=== PATIENT | female | born 1975 | race Caucasian/White ===

== ENCOUNTER 2018-03-27 23:42 | Emergency (ER) | payer BC, SELFPAY ==
[2018-03-27 23:46] VITALS: BP 152/100; PULSE 88; RESP 16; TEMP 36.9; O2SAT 100
[2018-03-27 23:56] LABS: Bilirubin Negative (Negative); Blood Trace-intact (Negative); Clarity Clear; Glucose Negative (Negative); Ketones 15 mg/dL (Negative); Leukocyte Esterase Small (Negative); Nitrite Negative (Negative); Urobilinogen 0.2 EU/dL (Up TO 0.2); pH 6.5 (5-8)
--- NOTE | 2018-03-28 00:02 | W.ED.GENAD ---
Discharge Plan Disposition Patient Disposition: HOME Condition: Good Discharge Details Chief Complaint: FlankPain Clinical Impression: Low back pain Primary Care Provider: Malena Mora ED Provider: Connor Wallace Home Meds and New Rx's Prescriptions: Continued lorazepam 0.5 mg tablet 0.5 mg PO HS PRN RF: 0 Discharge Instructions Additional Instructions: Your workup tonight is unremarkable. Urine is not infected. Laboratory studies are unremarkable. CT scan of the abdomen pelvis shows no acute findings. Would recommend gentle stretching, heat and taking Tylenol for back pain. Follow-up with primary care if continued symptoms next week. Return to ED if you develop high fever, persistent vomiting, new or worsening pain. Referrals: Malena Mora [Primary Care Provider] - Medical Decision Making Patient appears to be in no distress. She is not febrile here. She initially had flank pain but now has bilateral lower back pain. I cannot elicit tenderness anywhere. There is no CVAT. Abdomen is benign. She previously was seen and had a pelvic exam done this afternoon. test this afternoon was negative. We will check a urinalysis and give Motrin. She is not in significant discomfort and is not describing colicky kidney stone pain. This may be simple low back pain. Patient's first urinalysis was contaminated. Second urine also contaminated but has no red cells and minimal white cells. No evidence of infection. Patient is very concerned that there is something wrong. She reports nausea and back pain. She complains of pain with palpation in the epigastric region but had no guarding with distraction has no tenderness. She is worried because she is going to [facility]. As such we will go ahead and place an IV check her abdominal labs and get a CT scan of the abdomen and pelvis. Laboratory studies are unremarkable. White count is normal. Lipase is normal. CT scan of the abdomen pelvis without acute findings. No hydronephrosis. Patient made aware of findings. Recommend Tylenol as needed for discomfort. Follow-up with primary care when she returns from her vacation if necessary. Return to ED if she develops high fever, vomiting, new or worsening pain. Medical Records Medical records reviewed: Yes I reviewed the patient's medical records. Lab Data Lab results reviewed: Yes I reviewed the patient's lab results. HPI General Mode of arrival: ambulatory. Date/Time Provider Initiated Documentation: 03/27/18 23:48. Limitations to Documentation: no limitations. Information obtained by: patient. HPI Narrative: Patient presents to ED with complaints of back pain. Patient reports developing left sided flank pain this afternoon. She now has bilateral lower back pain. She has some nausea but no vomiting. She has no abdominal pain. She has had chills but no fever that she is aware of. She was just seen [facility] today for follow-up of bacterial vaginosis. She had a negative test. She had a pelvic exam and was cleared. She is supposed to be leaving for [place] tomorrow and was concerned with the back pain and came in for evaluation. She denies having urinary symptoms. She denies having colicky symptoms. Does not feel like previous kidney stones. She has not taking anything including Tylenol or Motrin for the pain. Related Data Home Medications Medication Instructions Recorded Confirmed lorazepam 0.5 mg tablet 0.5 mg PO HS PRN tab 02/22/18 03/27/18 Allergies Allergy/AdvReac Type Severity Reaction Status Date / Time azithromycin Allergy Severe Verified 03/27/18 23:54 Penicillins Allergy Severe Anaphylaxsi Verified 03/27/18 23:54 s General Stated Complaint: FlankPain ONRBERTO: 3 Review of Systems Constitutional Reports chills, Denies fever(s), Denies headache(s) and Denies weakness ENT Denies headache(s) and Denies neck pain Cardiovascular Denies chest pain, Denies palpitations and Denies dyspnea Respiratory Denies cough and Denies dyspnea Gastrointestinal Denies abdominal pain, Denies diarrhea, Reports nausea and Denies vomiting Genitourinary Denies abnormal vaginal bleeding, Denies hematuria, Denies urinary frequency, Denies dysuria, Denies pelvic pain, Reports flank pain, Denies urinary incontinence, Denies urinary hesitancy, Denies urinary urgency and Denies vaginal discharge Musculoskeletal Denies abnormal gait, Reports back pain, Denies muscle weakness, Denies neck pain, Denies numbness and Denies tingling Neurologic Denies abnormal gait, Denies headache(s), Denies focal weakness, Denies numbness, Denies radicular pain, Denies tingling and Denies weakness Endocrine Denies palpitations [facility] Medical History Anxiety (Chronic) Kidney stones (Chronic) Surgical History H/O dilation and curettage (Inactive) S/P ureteral stent placement (Inactive) Social History Smoking and Tabacco status: Former Tobacco Use Female Reproductive History Menstrual control method: none History History 5 Para 3 Hx # Term Pregnancies Multiple births Hx # Pregnancies Ectopic pregnancies AB induced Hx Number of Living Children AB spontaneous 2 Exam Const General: cooperative, comfortable and no acute distress Orientation: alert and oriented x3 Resp Effort & Inspection: normal respiratory effort GI Inspection: normal to inspection and non-distended Palpation: soft, not firm, no guarding and nontender Other: exam deferred; just had at [facility] today Back/Spine/Pelvis Back: no CVA tenderness Thoracic/Lumbar Spine: thoracic and lumbar spine normal to inspection, No pain with thoraco-lumbar ROM, No paraspinal tenderness, No thoraco-lumbar ROM limited, No thoracic spinal tenderness and No lumbar spinal tenderness Neuro General: alert, oriented x3, gait normal, no focal motor deficits and CN's II-XI intact bilaterally Sensory Exam: no sensory deficits noted Extrem General: normal to inspection and full ROM Course Vital Signs Temperature 98.4 F 03/27/18 23:46 Pulse 88 03/27/18 23:46 Respiratory Rate 16 03/27/18 23:46 Blood Pressure 152/100 H 03/27/18 23:46 Pulse Oximetry 100 03/27/18 23:46 Temperature 98.4 F 03/27/18 23:46 Temperature Source Skin 03/27/18 23:46 Pulse 88 03/27/18 23:46 Respiratory Rate 16 03/27/18 23:46 Respiratory Effort Non-Labored 03/27/18 23:53 Blood Pressure 152/100 H 03/27/18 23:46 Blood Pressure Position Sitting 03/27/18 23:46 Pulse Oximetry 100 03/27/18 23:46 Oxygen Delivery Method Room Air 03/27/18 23:46 Oxygen Flow Rate 0 03/27/18 23:46 Pain Level 3 03/27/18 23:46 Lab/Test Results Lab/Test Results: Laboratory Tests Range/Units 03/27/18 23:52 Urine Color (Yellow) Yellow Urine Clarity Clear Urine pH (5-8) 6.5 Ur Specific Butler (1.005-1.025) 1.020 Urine Protein (Negative) mg/dL Negative Urine Ketones (Negative) mg/dL 15 H Urine Blood (Negative) Trace-intact H Urine Nitrite (Negative) Negative Urine Bilirubin (Negative) Negative Urine Urobilinogen (Up TO 0.2) EU/dL 0.2 Ur Leukocyte Esterase (Negative) Small H Urine Glucose (Negative) mg/dL Negative
[2018-03-28 00:03] LABS: Bacteria Few HPF (Negative); C & S Indicated? No/Sq. Contamination; Casts Negative LPF (Negative); Crystals Negative HPF (Negative); Epithelial Cells Many HPF (Negative); Mucus Negative (Negative)
[2018-03-28] MEDS: Ibuprofen 600 MG TAB PO (00:07)
--- NOTE | 2018-03-28 00:14 | ED.GENADUL_ITS ---
Discharge Plan Disposition Patient Disposition: HOME Condition: Good Discharge Details Chief Complaint: FlankPain Clinical Impression: Low back pain Primary Care Provider: Malena Mora ED Provider: Connor Wallace Home Meds and New Rx's Prescriptions: Continued lorazepam 0.5 mg tablet 0.5 mg PO HS PRN RF: 0 Discharge Instructions Additional Instructions: Your workup tonight is unremarkable. Urine is not infected. Laboratory studies are unremarkable. CT scan of the abdomen pelvis shows no acute findings. Would recommend gentle stretching, heat and taking Tylenol for back pain. Follow-up with primary care if continued symptoms next week. Return to ED if you develop high fever, persistent vomiting, new or worsening pain. Referrals: Malena Mora [Primary Care Provider] - Medical Decision Making Patient appears to be in no distress. She is not febrile here. She initially had flank pain but now has bilateral lower back pain. I cannot elicit tenderness anywhere. There is no CVAT. Abdomen is benign. She previously was seen and had a pelvic exam done this afternoon. test this afternoon was negative. We will check a urinalysis and give Motrin. She is not in significant discomfort and is not describing colicky kidney stone pain. This may be simple low back pain. Patient's first urinalysis was contaminated. Second urine also contaminated but has no red cells and minimal white cells. No evidence of infection. Patient is very concerned that there is something wrong. She reports nausea and back pain. She complains of pain with palpation in the epigastric region but had no guarding with distraction has no tenderness. She is worried because she is going to [facility]. As such we will go ahead and place an IV check her abdominal labs and get a CT scan of the abdomen and pelvis. Laboratory studies are unremarkable. White count is normal. Lipase is normal. CT scan of the abdomen pelvis without acute findings. No hydronephrosis. Patient made aware of findings. Recommend Tylenol as needed for discomfort. Follow-up with primary care when she returns from her vacation if necessary. Return to ED if she develops high fever, vomiting, new or worsening pain. Medical Records Medical records reviewed: Yes I reviewed the patient's medical records. Lab Data Lab results reviewed: Yes I reviewed the patient's lab results. HPI General Mode of arrival: ambulatory . Date/Time Provider Initiated Documentation: 03/27/18 23:48 . Limitations to Documentation: no limitations . Information obtained by: patient . HPI Narrative: Patient presents to ED with complaints of back pain. Patient reports developing left sided flank pain this afternoon. She now has bilateral lower back pain. She has some nausea but no vomiting. She has no abdominal pain. She has had chills but no fever that she is aware of. She was just seen [facility] for follow-up of bacterial vaginosis. She had a negative test. She had a pelvic exam and was cleared. She is supposed to be leaving for [place] tomorrow and was concerned with the back pain and came in for evaluation. She denies having urinary symptoms. She denies having colicky symptoms. Does not feel like previous kidney stones. She has not taking anything including Tylenol or Motrin for the pain. Related Data Home Medications Medication Instructions Recorded Confirmed lorazepam 0.5 mg tablet 0.5 mg PO HS PRN tab 02/22/18 03/27/18 Allergies Allergy/AdvReac Type Severity Reaction Status Date / Time azithromycin Allergy Severe Verified 03/27/18 23:54 Penicillins Allergy Severe Anaphylaxsi Verified 03/27/18 23:54 s General Stated Complaint: FlankPain NORBERTO: 3 Review of Systems Constitutional Reports chills, Denies fever(s), Denies headache(s) and Denies weakness ENT Denies headache(s) and Denies neck pain Cardiovascular Denies chest pain, Denies palpitations and Denies dyspnea Respiratory Denies cough and Denies dyspnea Gastrointestinal Denies abdominal pain, Denies diarrhea, Reports nausea and Denies vomiting Genitourinary Denies abnormal vaginal bleeding, Denies hematuria, Denies urinary frequency, Denies dysuria, Denies pelvic pain, Reports flank pain, Denies urinary incontinence, Denies urinary hesitancy, Denies urinary urgency and Denies vaginal discharge Musculoskeletal Denies abnormal gait, Reports back pain, Denies muscle weakness, Denies neck pain, Denies numbness and Denies tingling Neurologic Denies abnormal gait, Denies headache(s), Denies focal weakness, Denies numbness, Denies radicular pain, Denies tingling and Denies weakness Endocrine Denies palpitations [facility] Medical History Anxiety (Chronic) Kidney stones (Chronic) Surgical History H/O dilation and curettage (Inactive) S/P ureteral stent placement (Inactive) Social History Smoking and Tabacco status: Former Tobacco Use Female Reproductive History Menstrual control method: none History History 5 Para 3 Hx # Term Pregnancies Multiple births Hx # Pregnancies Ectopic pregnancies AB induced Hx Number of Living Children AB spontaneous 2 Exam Const General: cooperative, comfortable and no acute distress Orientation: alert and oriented x3 Resp Effort & Inspection: normal respiratory effort GI Inspection: normal to inspection and non-distended Palpation: soft, not firm, no guarding and nontender Other: exam deferred; just had [facility] Back/Spine/Pelvis Back: no CVA tenderness Thoracic/Lumbar Spine: thoracic and lumbar spine normal to inspection, No pain with thoraco-lumbar ROM, No paraspinal tenderness, No thoraco-lumbar ROM limited, No thoracic spinal tenderness and No lumbar spinal tenderness Neuro General: alert, oriented x3, gait normal, no focal motor deficits and CN's II-XI intact bilaterally Sensory Exam: no sensory deficits noted Extrem General: normal to inspection and full ROM Course Vital Signs Temperature 98.4 F 03/27/18 23:46 Pulse 88 03/27/18 23:46 Respiratory Rate 16 03/27/18 23:46 Blood Pressure 152/100 H 03/27/18 23:46 Pulse Oximetry 100 03/27/18 23:46 Temperature 98.4 F 03/27/18 23:46 Temperature Source Skin 03/27/18 23:46 Pulse 88 03/27/18 23:46 Respiratory Rate 16 03/27/18 23:46 Respiratory Effort Non-Labored 03/27/18 23:53 Blood Pressure 152/100 H 03/27/18 23:46 Blood Pressure Position Sitting 03/27/18 23:46 Pulse Oximetry 100 03/27/18 23:46 Oxygen Delivery Method Room Air 03/27/18 23:46 Oxygen Flow Rate 0 03/27/18 23:46 Pain Level 3 03/27/18 23:46 Lab/Test Results Lab/Test Results: Laboratory Tests Range/Units 03/27/18 23:52 Urine Color (Yellow) Yellow Urine Clarity Clear Urine pH (5-8) 6.5 Ur Specific O'Brien (1.005-1.025) 1.020 Urine Protein (Negative) mg/dL Negative Urine Ketones (Negative) mg/dL 15 H Urine Blood (Negative) Trace-intact H Urine Nitrite (Negative) Negative Urine Bilirubin (Negative) Negative Urine Urobilinogen (Up TO 0.2) EU/dL 0.2 Ur Leukocyte Esterase (Negative) Small H Urine Glucose (Negative) mg/dL Negative
[2018-03-28 00:24] LABS: Bilirubin Negative (Negative); Blood Negative (Negative); Clarity Clear; Glucose Negative (Negative); Ketones Trace mg/dL (Negative); Leukocyte Esterase Trace (Negative); Nitrite Negative (Negative); Specific Gravity 1.015 (1.005-1.025); Urobilinogen 0.2 EU/dL (Up TO 0.2)
[2018-03-28 00:31] LABS: Bacteria Few HPF (Negative); C & S Indicated? No/Sq. Contamination; Casts Negative LPF (Negative); Crystals Negative HPF (Negative); Epithelial Cells Many HPF (Negative); Mucus Negative (Negative); RBC 0-2 (0-2)
[2018-03-28 00:49] LABS: Abs Immature Grans 0.01 k/cumm (0.0-0.09); Absolute Basophil Count 0.04 k/cumm (0.0-0.2); Absolute Eosinophil Count 0.06 k/cumm (0.0-0.7); Absolute Lymphocyte Count 2.75 k/cumm (1.2-3.4); Absolute Monocyte Count 0.47 k/cumm (0.11-0.7); Absolute Neutrophil Count 4.24 k/cumm (1.2-6.7); Basophils % 0.5; Eosinophils % 0.8; HCT 39.3 % (36.0-46.0); HGB 13.6 g/dL (12.0-15.5); Immature Grans % 0.1; Lymphocytes % 36.3; Mean Corp. HGB Concentration 34.6 g/dL (32.0-36.0); Mean Corpuscular Hemoglobin 30.8 pg (27.0-33.0); Mean Corpuscular Volume 88.9 fL (80-95); Mean Platelet Volume 9.8 fL (8.0-11.0); Monocytes % 6.2; Neutrophils % 56.1; Platelet Count 301 x1000/uL (130-400); RBC 4.42 m/cumm (4.00-5.20); RBC Distribution Width 11.9 % (11.7-14.6); White Blood Cell Count 7.57 k/cumm (4.4-10.8)
[2018-03-28 01:02] LABS: ALT 51 U/L (12-78); AST 32 U/L (15-37); Albumin 4.3 g/dL (3.4-5.0); Alkaline Phosphatase 42 U/L (46-116); Anion Gap 10.5 mmol/L (3-11); BUN 8 mg/dL (7-18); Bilirubin, Total 0.4 mg/dL (0.2-1.0); CO2 28.5 mmol/L (21.0-32.0); CREATININE 0.65 mg/dL (0.55-1.02); Calcium 9.2 mg/dL (8.5-10.1); Chloride 100 mmol/L (98-107); Glucose 131 mg/dL (70-100); Lipase 184 U/L (73-393); Potassium 3.4 mmol/L (3.5-5.1); Sodium 139 mmol/L (136-145); Total Protein 8.9 g/dL (6.4-8.2)
--- NOTE | 2018-03-28 01:15 | DI.CT_ITS ---
SYMPTOM/DIAGNOSIS: NAUSEA, ABD/BACK PAIN ABDOMEN AND PELVIC CT: CT scan of the abdomen and pelvis was performed following the uneventful administration of intravenous contrast material. Comparison is made with 04/17/09. The visualized lung bases are clear. The liver is normal in size. There is no evidence of a hepatic mass. The portal, superior mesenteric and splenic veins are patent. The gallbladder is negative. There is no biliary ductal dilatation. The pancreas, spleen and adrenal glands are unremarkable. The kidneys show normal and symmetric enhancement. No suspicious solid renal mass or obstruction is identified. The urinary bladder is intact. The reproductive organs are unremarkable. No significant abdominal or pelvic adenopathy, ascites or pneumoperitoneum is seen. The bowel shows no evidence of obstruction or inflammation. No findings to suggest an acute appendicitis are present. No acute osseous abnormality is identified. IMPRESSION: No evidence of an abdomen.
[2018-03-28] MEDS: Omnipaque 350 MG/ML 100 ML BTL IJ (01:19)
[2018-03-28] MEDS: Normal Saline Flush 10 ML SYR IVP (01:20)
[2018-03-28 01:25] VITALS: BP 116/45; PULSE 72; RESP 16; TEMP 37.1; O2SAT 99
--- NOTE | 2018-03-28 01:29 | DI.VRAD_ITS ---
EXAM: CT Abdomen and Pelvis With Contrast EXAM DATE/TIME: 03/28/2018 12:37 AM CLINICAL HISTORY: 42 years old, female; Pain; Abdominal pain; Flank; Lower; Patient HX: Nausea, chills, abdominal pain and back pain TECHNIQUE: Axial computed tomography images of the abdomen and pelvis with intravenous contrast. All CT scans at this facility use at least one of these dose optimization techniques: automated exposure control; mA and/or kV adjustment per patient size (includes targeted exams where dose is matched to clinical indication); or iterative reconstruction. Coronal and sagittal reformatted images were created and reviewed. Technologist notes: Main CONTRAST: Contrast Material: 100 ml of Omnipaque 350; Contrast Route: IV COMPARISON: No relevant prior studies available. FINDINGS: Lower thorax: Unremarkable. ABDOMEN: Liver: No suspicious lesions. Gallbladder and bile ducts: No acute or concerning findings. Pancreas: Unremarkable. No ductal dilation. Spleen: No suspicious lesions. Adrenals: Unremarkalbe. No suspicious mass. Kidneys and ureters: Unremarkable. No hydro. No suspicious lesions. Stomach and bowel: Mild wall thickening of the descending colon is likely lack of distention. Appendix: No evidence of appendicitis. PELVIS: Bladder: Unremarkable as visualized. Reproductive: Unremarkable as visualized. ABDOMEN and PELVIS: Intraperitoneal space: No free air. No significant fluid collection. Bones/joints: No acute fracture. No dislocation. Soft tissues: Unremarkable. Vasculature: Unremarkable. No acute findings Lymph nodes: Unremarkable. IMPRESSION: No acute findings. Dictated and Authenticated by: Yg Easley MD. Ordering:MYLENE Ryan MD
== END 2018-03-28 01:48 | disposition home or self-care (01) ==
PROVIDERS: Emergency Provider Emergency Medicine; PCP Family Medicine
DX: M54.5 Low back pain (principal); Z87.442 Personal history of urinary calculi
CPT/HCPCS: 36415; 80053; 83690; 99285; 74177; 81003; 81015; 85025; 99284; J3490

== ENCOUNTER 2018-07-09 11:20 | Outpatient (REF) | payer BC, SELFPAY ==
[2018-07-09 13:39] LABS: Glucose 93 mg/dL (70-100)
== END 2018-07-09 11:40 ==
LOC: NCHCN 11:20
PROVIDERS: PCP Family Medicine; Visit Provider Family Medicine
DX: R73.01 Impaired fasting glucose (principal)
CPT/HCPCS: 82947

== ENCOUNTER 2018-09-05 10:38 | Outpatient (CLI) | payer BC, SELFPAY ==
--- NOTE | 2018-09-05 10:22 | DI.RAD_ITS ---
SYMPTOMS/DIAGNOSIS: RT SHOULDER PAIN RIGHT SHOULDER: The glenohumeral joint appears intact. There are mild degenerative changes involving the AC joint. The examination is otherwise unremarkable.
== END 2018-09-05 10:58 ==
PROVIDERS: PCP Family Medicine; Visit Provider Physician Assistant
DX: M25.511 Pain in right shoulder (principal); M19.011 Primary osteoarthritis, right shoulder
CPT/HCPCS: 73030

== ENCOUNTER 2018-11-27 15:47 | Outpatient (REF) | payer BC, SELFPAY ==
[2018-11-27 21:32] LABS: Abs Immature Grans 0.01 k/cumm (0.0-0.09); Absolute Basophil Count 0.04 k/cumm (0.0-0.2); Absolute Eosinophil Count 0.04 k/cumm (0.0-0.7); Absolute Monocyte Count 0.63 k/cumm (0.11-0.7); Absolute Neutrophil Count 5.01 k/cumm (1.2-6.7); Basophils % 0.5; Eosinophils % 0.5; HCT 37.3 % (36.0-46.0); HGB 12.5 g/dL (12.0-15.5); Immature Grans % 0.1; Lymphocytes % 31.2; Mean Corp. HGB Concentration 33.5 g/dL (32.0-36.0); Mean Corpuscular Hemoglobin 30.8 pg (27.0-33.0); Mean Corpuscular Volume 91.9 fL (80-95); Mean Platelet Volume 10.7 fL (8.0-11.0); Monocytes % 7.6; Neutrophils % 60.1; Platelet Count 346 x1000/uL (130-400); RBC 4.06 m/cumm (4.00-5.20); RBC Distribution Width 11.5 % (11.7-14.6); White Blood Cell Count 8.33 k/cumm (4.4-10.8)
[2018-11-27 21:42] LABS: Iron 78 ug/dL (50-175); Total Iron Binding Capacity 408 ug/dL (250-450); Transferrin Sat 19 % (15-50)
[2018-11-27 21:54] LABS: Anion Gap 10.5 mmol/L (3-11); BUN 13 mg/dL (7-18); CO2 26.5 mmol/L (21.0-32.0); CREATININE 0.81 mg/dL (0.55-1.02); Calcium 9.3 mg/dL (8.5-10.1); Chloride 103 mmol/L (98-107); Glucose 93 mg/dL (70-100); Magnesium 1.8 mg/dL (1.8-2.4); Potassium 3.9 mmol/L (3.5-5.1); Sodium 140 mmol/L (136-145); TSH (W/Ref FT4) 0.71 uIU/mL (0.36-3.74)
== END 2018-11-27 16:07 ==
LOC: NCHCN 15:47
PROVIDERS: PCP Family Medicine; Visit Provider Nurse Practitioner Family
DX: G43.109 Migraine with aura, not intractable, without status migrainosus (principal); J30.9 Allergic rhinitis, unspecified; R51 Headache; H93.8X9 Other specified disorders of ear, unspecified ear
CPT/HCPCS: 80048; 83540; 83550; 83735; 84443; 85025

== ENCOUNTER 2018-11-28 00:28 | Outpatient (CLI) | payer BC, SELFPAY ==
--- NOTE | 2018-11-28 11:03 | DI.MAMMO_ITS ---
EXAM: MAMMO SCREENING CLINICAL HISTORY: SCREENING Z12.31. TECHNIQUE: Mammograms were interpreted according to the usual protocol including computer analysis w [employer] CAD system, tomosynthesis and C-view imaging. FINDINGS: The breast tissue is of moderate radiodensity. There is no dominant mass. There are no suspicious jose r cifications and there has been no significant interval change when compared with prior images. IMPRESSION: No evidence of malignancy, category 1. Annual screening mammography is recommended. Breast density, c ategory B. BI-RADS Cat 1 - Negative. Breast Density - Category B - Scattered areas of fibroglandular density.
== END 2018-11-28 00:48 ==
PROVIDERS: PCP Family Medicine; Visit Provider Family Medicine
DX: Z12.31 Encounter for screening mammogram for malignant neoplasm of breast (principal)
CPT/HCPCS: 77063; 77067

== ENCOUNTER 2019-03-01 15:52 | Outpatient (REF) | payer BC, SELFPAY ==
--- NOTE | 2019-03-01 15:15 | PAPFT_PTH ---
PATIENT: Jamia Newell LOC: N U#:[id number] AGE/SX: 43/F ROOM: RE03/01/[address]: FRANKLYN Nava : 1975 BED: DIS: 03/01/2019 SPEC #: [id number] RECD: 03/01/19 17:41 STATUS: SEVEN REQ #: [id number] LUBA: 03/01/19 15:[address]: Tessa Pichardo DEPT: [facility] RECD BY: Iza Rojas ENTERED: 03/01/19 17:41 SP TYPE: PAPFT OTHR DR: Malena Mora Tissues: 1 - CX/ENDOCX FOR PAP SMEARS Procedures: PAP THIN PREP/UVM Screening HPV DNA PROBE Comments: [id number]
== END 2019-03-01 16:12 ==
LOC: LBN 15:52
PROVIDERS: PCP Family Medicine; Visit Provider Nurse Practitioner Family
DX: Z12.4 Encounter for screening for malignant neoplasm of cervix (principal); Z11.51 Encounter for screening for human papillomavirus (HPV)
CPT/HCPCS: 88142; 87624

== ENCOUNTER 2019-06-17 17:03 | Outpatient (REF) | payer BC, SELFPAY ==
[2019-06-17 21:04] LABS: Absolute Basophil Count 0.03 k/cumm (0.0-0.2); Absolute Eosinophil Count 0.05 k/cumm (0.0-0.7); Absolute Lymphocyte Count 2.13 k/cumm (1.2-3.4); Absolute Monocyte Count 0.58 k/cumm (0.11-0.7); Absolute Neutrophil Count 4.11 k/cumm (1.2-6.7); Basophils % 0.4; Eosinophils % 0.7; HCT 37.8 % (36.0-46.0); HGB 12.9 g/dL (12.0-15.5); Lymphocytes % 30.9; Mean Corp. HGB Concentration 34.1 g/dL (32.0-36.0); Mean Corpuscular Hemoglobin 30.6 pg (27.0-33.0); Mean Corpuscular Volume 89.6 fL (80-95); Mean Platelet Volume 10.8 fL (8.0-11.0); Monocytes % 8.4; Neutrophils % 59.6; Platelet Count 329 x1000/uL (130-400); RBC 4.22 m/cumm (4.00-5.20); RBC Distribution Width 11.5 % (11.7-14.6)
[2019-06-17 21:21] LABS: Iron 57 ug/dL (50-170); Total Iron Binding Capacity 425 ug/dL (250-450); Transferrin Sat 13 % (15-50)
[2019-06-17 21:24] LABS: ALT 79 U/L (14-59); AST 31 U/L (15-37); Alkaline Phosphatase 48 U/L (46-116); Anion Gap 9.2 mmol/L (3-11); BUN 8 mg/dL (7-18); Bilirubin, Total 0.2 mg/dL (0.2-1.0); CO2 27.8 mmol/L (21.0-32.0); CREATININE 0.61 mg/dL (0.55-1.02); Calcium 8.9 mg/dL (8.5-10.1); Chloride 101 mmol/L (98-107); Glucose 114 mg/dL (74-106); Potassium 3.5 mmol/L (3.5-5.1); Sodium 138 mmol/L (136-145); TSH (W/Ref FT4) 0.66 uIU/mL (0.36-3.74); Total Protein 7.9 g/dL (6.4-8.2)
== END 2019-06-17 17:23 ==
LOC: NCHCN 17:03
PROVIDERS: PCP Family Medicine; Visit Provider Nurse Practitioner Family
DX: R07.9 Chest pain, unspecified (principal); R10.9 Unspecified abdominal pain; K92.1 Melena
CPT/HCPCS: 80053; 83540; 83550; 84443; 85025

== ENCOUNTER 2019-06-21 03:44 | Outpatient (CLI) | payer BC, SELFPAY ==
--- NOTE | 2019-06-21 08:23 | DI.US_ITS ---
EXAM: US ABDOMEN CLINICAL HISTORY: ABD PAIN, R10.9,ELEVATED LIVER ENZYMES,R74.8,BLACK STOOLS, K92.1, TECHNIQUE: Ultrasound performed using standard protocol. COMPARISON: US PELVIS TRANSVAG from 08/13/[address] ABDOMEN PELVIS W from 03/28/2018 FINDINGS: The visualized liver parenchyma is normal in appearance. No evidence of hepatomegaly. Spleen appears normal. Gallbladder is normal with no evidence of cholelithiasis, gallbladder wall thickening, or a perichole cystic fluid collection. There is no evidence of biliary dilatation. The pancreas appears normal. The kidneys are unremarkable in appearance with no evidence of hydronephrosis, nephrolithiasis, or re nal mass. Abdominal aorta and IVC are of normal diameter. IMPRESSION: Normal abdominal ultrasound. DATA REPOSITORY:
== END 2019-06-21 04:04 ==
PROVIDERS: PCP Family Medicine; Visit Provider Nurse Practitioner Family
DX: R10.9 Unspecified abdominal pain (principal); R74.8 Abnormal levels of other serum enzymes; K92.1 Melena
CPT/HCPCS: 76700

== ENCOUNTER 2019-07-25 17:22 | Outpatient (REF) | payer BC, SELFPAY | END 2019-07-25 17:42 | LOC: NCHCN 17:22 | PROVIDERS: PCP Family Medicine; Visit Provider Family Medicine | DX: R10.9 Unspecified abdominal pain (principal) | CPT/HCPCS: 87086 ==

== ENCOUNTER 2020-04-13 16:26 | Outpatient (REF) | payer BC, SELFPAY ==
[2020-04-14 12:24] LABS: COVID-19 RT-PCR UVMMC Result Negative (Negative)
== END 2020-04-13 16:27 | disposition home or self-care (01) ==
LOC: NCHCN 16:26
PROVIDERS: PCP Family Medicine; Visit Provider Family Medicine
DX: Z20.822 Contact with and (suspected) exposure to COVID-19 (principal)
CPT/HCPCS: U0003

== ENCOUNTER 2020-06-03 03:42 | Outpatient (CLI) | payer BC, SELFPAY ==
[2020-06-03 08:46] LABS: Hemoglobin A1C 5.5 % (<5.7)
== END 2020-06-03 03:43 | disposition home or self-care (01) ==
LOC: LBO 03:42
PROVIDERS: PCP Family Medicine; Visit Provider Family Medicine
DX: R73.03 Prediabetes (principal)
CPT/HCPCS: 36415; 83036

== ENCOUNTER 2020-06-11 12:56 | Outpatient (REF) | payer BC, SELFPAY ==
[2020-06-11 21:08] LABS: Abs Immature Grans 0.01 10^3/uL (0.0-0.06); Absolute Basophil Count 0.05 10^3/uL (0.0-0.2); Absolute Eosinophil Count 0.04 10^3/uL (0.0-0.7); Absolute Lymphocyte Count 2.26 10^3/uL (1.2-3.4); Absolute Monocyte Count 0.46 10^3/uL (0.1-0.8); Absolute Neutrophil Count 4.74 10^3/uL (1.2-6.7); Basophils % 0.7; Eosinophils % 0.5; HCT 35.6 % (36.0-46.0); HGB 11.7 g/dL (11.2-15.7); Immature Grans % 0.1; Lymphocytes % 29.9; MCH 28.6 pg (27.0-33.0); MCHC 32.9 % (32.0-36.0); MPV 11.4 fL (8.0-11.0); Monocytes % 6.1; Neutrophils % 62.7; Nucleated RBC 0 %; Platelet Count 282 10^3/uL (130-400); RBC 4.09 10^6/uL (3.93-5.22); RDW 12.6 % (11.7-14.6); RDW-SD 39.8 fL; WBC 7.56 10^3/uL (4.4-10.8)
[2020-06-11 21:26] LABS: ALT 43 U/L (14-59); AST 18 U/L (15-37); Albumin 3.9 g/dL (3.4-5.0); Alkaline Phosphatase 44 U/L (46-116); Bilirubin, Direct 0.1 mg/dL (0.0-0.2); Bilirubin, Total 0.4 mg/dL (0.2-1.0); Lipase 130 U/L (73-393); Total Protein 7.8 g/dL (6.4-8.2)
== END 2020-06-11 12:57 | disposition home or self-care (01) ==
LOC: NCHCN 12:56
PROVIDERS: PCP Family Medicine; Visit Provider Family Medicine
DX: R10.11 Right upper quadrant pain (principal)
CPT/HCPCS: 80076; 83690; 85025

== ENCOUNTER 2020-06-24 10:22 | Outpatient (REF) | payer BC, SELFPAY ==
[2020-06-25 16:24] LABS: COVID-19 RT-PCR UVMMC Result Positive (Negative)
== END 2020-06-24 10:23 | disposition home or self-care (01) ==
LOC: NCHCN 10:22
PROVIDERS: PCP Family Medicine; Visit Provider Family Medicine
DX: Z20.822 Contact with and (suspected) exposure to COVID-19 (principal)
CPT/HCPCS: U0003

== ENCOUNTER 2020-08-26 10:01 | Outpatient (REF) | payer BC, SELFPAY ==
[2020-08-26 16:43] LABS: ALT 50 U/L (14-59); AST 24 U/L (15-37); Albumin 3.8 g/dL (3.4-5.0); Alkaline Phosphatase 38 U/L (46-116); Anion Gap 10.3 mmol/L (3-11); BUN 11 mg/dL (7-18); Bilirubin, Total 0.3 mg/dL (0.2-1.0); CO2 26.7 mmol/L (21.0-32.0); CREATININE 0.6 mg/dL (0.55-1.02); Calcium 9.1 mg/dL (8.5-10.1); Calculated LDL 172 mg/dL (<100); Chloride 103 mmol/L (98-107); Cholesterol 236 mg/dL (<200); Glucose 85 mg/dL (74-106); HDL Cholesterol 51 mg/dL (40-60); Potassium 4.5 mmol/L (3.5-5.1); Sodium 140 mmol/L (136-145); Total Protein 7.1 g/dL (6.4-8.2); Triglyceride 68 mg/dL (<150)
== END 2020-08-26 10:02 | disposition home or self-care (01) ==
LOC: NCHCN 10:01
PROVIDERS: PCP Family Medicine; Visit Provider Family Medicine
DX: R10.11 Right upper quadrant pain (principal); R73.03 Prediabetes; E66.9 Obesity, unspecified; R74.8 Abnormal levels of other serum enzymes
CPT/HCPCS: 80053; 80061

== ENCOUNTER 2020-10-30 11:53 | Emergency (ER) | payer BC, SELFPAY ==
[2020-10-30 12:06] VITALS: BP 128/70; PULSE 78; RESP 18; TEMP 36.7; O2SAT 99
[2020-10-30 12:36] LABS: Bilirubin Negative (Negative); Blood Negative (Negative); Clarity Clear (Clear); Glucose Negative (Negative); Ketones Negative (Negative); Leukocyte Esterase Negative (Negative); Nitrite Negative (Negative); Urobilinogen 0.2 EU/dL (Up TO 0.2)
--- NOTE | 2020-10-30 12:45 | DI.RAD_ITS ---
Exam(s) XR CHEST 2V PA LATERAL EXAM: XR CHEST 2V PA LATERAL CLINICAL HISTORY: right flank pain TECHNIQUE: 2D digital imaging was performed of the chest. Two images were obtained. PA and lateral views were obtained. COMPARISON: No exams were available for comparison FINDINGS: MEDIASTINUM: Normal. HEART: Normal. PULMONARY VASCULATURE: Normal. LUNGS: Clear. PLEURAL SPACE: No pleural effusion or pneumothorax. BONE:Within normal limits for the patient's age. OTHER FINDINGS:Normal. IMPRESSION: No acute pulmonary findings. DATA REPOSITORY: RADIATION DOSE DELIVERED:
--- NOTE | 2020-10-30 12:45 | RT.EKG_ITS ---
APPROVED REPORT Exam: Resting ECG Reason for Exam: right flank pain Patient Location: E HR:69 bpm ECG Measurements Heart Rate 69 AXIS MI 140 P 46 QRSd 88 QRS 7 QT 410 T 36 QTc 441 Conclusion Sinus rhythm...normal P axis, V-rate 60- 99 Sinus. No STEMI. I have reviewed and interpreted ECG and agree with software generated interpretation.
[2020-10-30 12:59] LABS: Abs Immature Grans 0.01 10^3/uL (0.0-0.06); Absolute Basophil Count 0.06 10^3/uL (0.0-0.2); Absolute Eosinophil Count 0.04 10^3/uL (0.0-0.7); Absolute Lymphocyte Count 2.27 10^3/uL (1.2-3.4); Absolute Neutrophil Count 3.91 10^3/uL (1.2-6.7); Basophils % 0.9; Eosinophils % 0.6; HCT 33.7 % (36.0-46.0); HGB 10.7 g/dL (11.2-15.7); Immature Grans % 0.1; Lymphocytes % 32.9; MCH 27.2 pg (27.0-33.0); MCHC 31.8 % (32.0-36.0); MCV 85.8 fL (80-95); MPV 10.6 fL (8.0-11.0); Monocytes % 8.7; Neutrophils % 56.8; Nucleated RBC 0 %; Platelet Count 269 10^3/uL (130-400); RBC 3.93 10^6/uL (3.93-5.22); RDW-SD 40.8 fL; WBC 6.89 10^3/uL (4.4-10.8)
--- NOTE | 2020-10-30 13:10 | DI.CT_ITS ---
Exam(s) CT ABDOMEN PELVIS W EXAM: CT ABDOMEN PELVIS W CLINICAL HISTORY: right flank pain TECHNIQUE: Imaging Protocol: Axial computed tomography images with coronal and sagittal reformatted images were created and reviewed CONTRAST MATERIAL: Intravenous: Omnipaque 350 Contrast volume:100 mL Oral: No COMPARISON: CT CT ABDOMEN PELVIS W from 03/28/2018 FINDINGS: ABDOMEN: Lung Bases: Normal where visualized. Liver: Normal density. There are 2 tiny hypodensities in the liver (less than 3 mm). They are too sm all for further characterization but likely reflect small cysts. Portal, Superior Mesenteric, and Splenic Veins: Unremarkable. Gallbladder and Biliary Tract: No radiodense calculus or dilation. Pancreas: Normal density, no abnormal calcifications or inflammatory process. Spleen: Normal. Adrenals: No masses seen. Kidneys: Normal size, contour and axis. No radiodense stones or obstructive uropathy. No masses seen. Abdominal Aorta: Abdominal portion non-dilated. Atherosclerosis. Bowel: No obstruction or bowel wall thickening. No evidence of appendicitis. Peritoneal Cavity: No ascites, collection or mesenteric inflammatory response. No free air. Lymph Nodes: Within normal limits. Bones: Within normal limits for the patient's age. Soft Tissues: There is a small fat containing umbilical hernia. PELVIS: Bladder: Symmetric distention, no gross wall thickening. Reproductive Organs: There is a 2.6 cm right ovarian cyst. There is a 1.9 cm cyst with hyperattenuat ing torres which may represent a corpus luteal cyst. Reproductive organs are otherwise unremarkable. Lymph Nodes: Within normal limits. Bones: Within normal limits for the patient's age. IMPRESSION: 1. No evidence of acute appendicitis, cholelithiasis or hydronephrosis. 2. Right ovarian cysts. The largest measures 2.6 cm. 3. Results of this exam have been verbally communicated with provider. RADIATION DOSE DELIVERED: 943.76mGy.cm Total DLP DATA REPOSITORY: All CT scans at this facility are submitted to the National Radiology Data Registry (NRDR) Dose Index Registry (DIR) with the [employer] (A[employer]). RADIATION OPTIMIZATION: All CT scans at this facility use at least one of these dose optimization te chniques: automated exposure control; mA and/or kV adjustment per patient size (includes targeted exa ms where dose is matched to clinical indication); or iterative reconstruction.
[2020-10-30 13:15] LABS: ALT 48 U/L (14-59); AST 21 U/L (15-37); Albumin 3.9 g/dL (3.4-5.0); Alkaline Phosphatase 42 U/L (46-116); Anion Gap 7.9 mmol/L (3-11); BUN 11 mg/dL (7-18); Bilirubin, Total 0.3 mg/dL (0.2-1.0); CO2 27.1 mmol/L (21.0-32.0); CREATININE 0.6 mg/dL (0.55-1.02); Calcium 8.9 mg/dL (8.5-10.1); Chloride 103 mmol/L (98-107); Glucose 101 mg/dL (74-106); Lipase 179 U/L (73-393); Potassium 3.4 mmol/L (3.5-5.1); Sodium 138 mmol/L (136-145); Total Protein 8.2 g/dL (6.4-8.2)
[2020-10-30 13:16] LABS: Troponin I < 0.05 ng/mL (<0.06)
[2020-10-30] MEDS: Omnipaque 350 MG/ML 100 ML BTL IJ (13:20)
[2020-10-30] MEDS: Normal Saline Flush 10 ML SYR IVP (13:21)
[2020-10-30] MEDS: Ondansetron 4 MG/2 ML VIAL IVP (13:38)
--- NOTE | 2020-10-30 14:28 | ED.GENADUL_ITS ---
Discharge Plan Disposition Patient Disposition: HOME Condition: Good Discharge Details Clinical Impression: Ovarian cyst, Epigastric abdominal pain Primary Care Provider: Malena Mora ED Provider: Iza Randall Home Meds and New Rx's Prescriptions: New sucralfate [Carafate] 1 gram tablet 1 g PO BID Qty: 14 RF: 0 ondansetron HCl [Zofran] 4 mg tablet 4 mg PO Q8H PRNQty: 10 RF: 0 potassium chloride 20 mEq tablet extended release 20 meq PO DAILY Qty: 7 RF: 0 Continued esomeprazole magnesium [Nexium] 40 mg capsule,delayed release(DR/EC) 80 mg PO DAILY RF: 0 nystatin 100,000 unit/gram powder 1 applic TP BID PRN (Reason: rash) Qty: 30 RF: 1 Discharge Instructions Instructions: Ovarian Cyst (ED), Epigastric Pain (ED) Additional Instructions: Take Carafate as well take Carafate as prescribed [place] diet for the next several days Zofran as needed for nausea and vomiting Ibuprofen 600 mg every 8 hours with food Tylenol 650 mg Follow-up with your primary care physician on Monday for She should have a repeat pelvic ultrasound in 2-3 cycles Please follow-up with surgery regarding your intermittent right upper quadrant pain Please return earlier should you have new or Referrals: Naya Drake DO [ NON-[facility] STAFF PHYSICIAN] - Discharge Data Discharge Date/Time-TO BE ENTERED AT DEPARTURE: 10/30/20 14:43 Medical Decision Making PERC negative No hypoxia, tachypnea, tachycardia, afebrile nontoxic, diagnostic labs reassuring as is urinalysis and CT scan shows evidence of right ovarian cyst without additional acute abnormality Patient otherwise is resting comfortably, given the threshold to return should she have new or worsening complaints and encouraged to follow-up with her doctor in 48 to 72 hours for reassessment Will need repeat ultrasound for ovarian cyst in 2-3 cycles Persistently anemic but unchanged from prior HPI General Mode of arrival: ambulatory . Date/Time Provider Initiated Documentation: 10/30/20 12:33 . Limitations to Documentation: no limitations . Information obtained by: patient . HPI Narrative: This 45-year-old female presents with right upper quadrant and right flank pain which has been intermittent over the course of the past couple months. Has been nauseous without vomiting. Denies chest pain or shortness of breath. Denies dizziness or weakness. Denies any lower abdominal discomfort. Denies any fever or chills. States the pain has been present for the past week. States she had numerous ultrasounds in the past that have not showed acute abnormality. Denies chance of . Denies diarrhea. Related Data Home Medications Medication Instructions Recorded Confirmed esomeprazole magnesium 40 mg 80 mg PO DAILY cap 08/21/19 10/30/20 capsule,delayed release nystatin 100,000 unit/gram topical 1 applic TP BID PRN #30 gm 10/03/19 10/30/20 powder ondansetron HCl [Zofran] 4 mg PO Q8H PRN #10 tab 10/30/20 potassium chloride 20 meq PO DAILY #7 tab 10/30/20 sucralfate [Carafate] 1 g PO BID #14 tab 10/30/20 Previous Rx's Medication Instructions Recorded nystatin 100,000 unit/gram topical 1 applic TP BID PRN #30 gm 10/03/19 powder ondansetron HCl [Zofran] 4 mg PO Q8H PRN #10 tab 10/30/20 potassium chloride 20 meq PO DAILY #7 tab 10/30/20 sucralfate [Carafate] 1 g PO BID #14 tab 10/30/20 Allergies Allergy/AdvReac Type Severity Reaction Status Date / Time azithromycin Allergy Severe Verified 10/30/20 12:10 Penicillins Allergy Severe Anaphylaxsi Verified 10/30/20 12:10 s General Stated Complaint: FlankPain NORBERTO: 3 Review of Systems All systems reviewed & are unremarkable except as noted in HPI and below PFSH Medical History (Updated 10/30/20 @ 14:32 by PEYMAN Venegas) Anxiety Kidney stones Surgical History H/O dilation and curettage S/P ureteral stent placement Family History Father Diabetes Heart disease Grandmother Breast cancer paternal Maternal Aunt Breast cancer paternal Maternal Aunt Breast cancer paternal Social History Smoking/Tobacco Use Status: Former Tobacco Use Smoking risk assessment performed?: Yes Alcohol Intake: current Alcohol Intake frequency: a few times a week Drug use: Never Substance use type: does not use Do you feel safe in your relationship?: Yes Female Reproductive History Menstrual control method: none History History 5 Para 3 Hx # Term Pregnancies Multiple births Hx # Pregnancies Ectopic pregnancies AB induced Hx Number of Living Children AB spontaneous 2 Exam Const General: cooperative, comfortable and no acute distress HENMT Face and sinus: No dry mucous membranes Eyes Pupils: PERRL Chest Chest: normal inspection of the chest Resp Effort & Inspection: normal respiratory effort Cardio Rate: regular rate GI Inspection: normal to inspection Auscultation: normal bowel sounds Other: Nontender abdominal exam Skin General skin exam: no rashes or lesions noted Neuro General: patient alert and patient oriented x3 Extrem General: normal to inspection and capillary refill normal Course Vital Signs Vital signs: Vital Signs Temperature 36.7 C 10/30/20 12:06 Pulse 78 10/30/20 12:06 Respiratory Rate 18 10/30/20 12:06 Blood Pressure 128/70 10/30/20 12:06 Pulse Oximetry 99 10/30/20 12:06 Temperature 36.7 C 10/30/20 12:06 Temperature Source Skin 10/30/20 12:06 Pulse 78 10/30/20 12:06 Respiratory Rate 18 10/30/20 12:06 Respiratory Effort 10/30/20 12:11 Blood Pressure 128/70 10/30/20 12:06 Blood Pressure Position Sitting 10/30/20 12:06 Pulse Oximetry 99 10/30/20 12:06 Oxygen Delivery Method Room Air 10/30/20 12:06 Oxygen Flow Rate 0 10/30/20 12:06 Pain Level 6 10/30/20 12:06 Lab/Test Results Lab/Test Results: Laboratory Tests Range/Units 10/30/20 10/30/20 10/30/20 12:17 12:30 12:30 WBC (4.4-10.8) 10^3/uL 6.89 RBC (3.93-5.22) 10^6/uL 3.93 Hgb (11.2-15.7) g/dL 10.7 L Hct (36.0-46.0) % 33.7 L MCV (80-95) fL 85.8 MCH (27.0-33.0) pg 27.2 MCHC (32.0-36.0) % 31.8 L RDW (11.7-14.6) % 13.0 Plt Count (130-400) 10^3/uL 269 MPV (8.0-11.0) fL 10.6 Immature Gran % 0.1 Neutrophils % 56.8 Lymphocytes % 32.9 Monocytes % 8.7 Eosinophils % 0.6 Basophils % 0.9 Nucleated RBC % % 0 Absolute Neutrophils (1.2-6.7) 10^3/uL 3.91 Absolute Lymphocytes (1.2-3.4) 10^3/uL 2.27 Absolute Monocytes (0.1-0.8) 10^3/uL 0.60 Absolute Eosinophils (0.0-0.7) 10^3/uL 0.04 Absolute Basophils (0.0-0.2) 10^3/uL 0.06 Sodium (136-145) mmol/L 138 Potassium (3.5-5.1) mmol/L 3.4 L Chloride (98-107) mmol/L 103 Carbon Dioxide (21.0-32.0) mmol/L 27.1 Anion Gap (3-11) mmol/L 7.9 BUN (7-18) mg/dL 11 Creatinine (0.55-1.02) mg/dL 0.6 Estimated GFR/1.73 m2 (mL/min/1.73m2) >= 60.00 Glucose (74-106) mg/dL 101 Calcium (8.5-10.1) mg/dL 8.9 Total Bilirubin (0.2-1.0) mg/dL 0.3 AST (15-37) U/L 21 ALT (14-59) U/L 48 Alkaline Phosphatase (46-116) U/L 42 L Troponin I (<0.06) ng/mL < 0.05 Total Protein (6.4-8.2) g/dL 8.2 Albumin (3.4-5.0) g/dL 3.9 Lipase (73-393) U/L 179 Urine Color (Yellow) Yellow Urine Clarity (Clear) Clear Urine pH (5-8) 6.0 Ur Specific [place] (1.005-1.025) 1.010 Urine Protein (Negative) mg/dL Negative Urine Ketones (Negative) mg/dL Negative Urine Blood (Negative) Negative Urine Nitrite (Negative) Negative Urine Bilirubin (Negative) Negative Urine Urobilinogen (Up TO 0.2) EU/dL 0.2 Ur Leukocyte Esterase (Negative) Negative Urine Glucose (Negative) mg/dL Negative
[2020-10-30 14:45] VITALS: BP 128/70; PULSE 78; RESP 18; TEMP 36.7; O2SAT 99
== END 2020-10-30 14:43 | disposition home or self-care (01) ==
PROVIDERS: Emergency Provider Physician Assistant; PCP Family Medicine
DX: N83.291 Other ovarian cyst, right side (principal); R10.13 Epigastric pain
CPT/HCPCS: 36415; 80053; 83690; 93005; 96374; 99285; 71046; 74177; 81003; 84484; 85025; 93010; 99284; J2405; J3490

== ENCOUNTER 2021-01-28 11:34 | Outpatient (CLI) | payer BC, SELFPAY ==
--- NOTE | 2021-01-28 10:53 | DI.RAD_ITS ---
Exam(s) XR HIP RT COMPLETE AP PELVIS EXAM: XR HIP RT COMPLETE AP PELVIS INDICATION: bilateral hip pain. COMPARISON: CR [facility] ILIAC JOINTS from 08/11/[address] ABDOMEN PELVIS W from 10/30/2020 TECHNIQUE: 2D digital imaging was performed. FINDINGS: Hip joint spaces are well maintained. No significant acetabular spurring. Rounded bony densities ar e noted superior to the right greater trochanter. There is some calcification in the distal gluteus medius tendon insertion on the right greater trochanter. A spur is seen at the lesser trochanter. T iny bony densities are noted above the left greater trochanter. The SI joints show minimal spurring. No bony erosions. IMPRESSION: No significant degenerative changes of the hips. Calcific tendinosis is demonstrated, right greater than left.. DATA REPOSITORY: RADIATION DOSE DELIVERED:
== END 2021-01-28 11:35 | disposition home or self-care (01) ==
LOC: DIORS 11:34
PROVIDERS: PCP Family Medicine; Referring Provider Family Medicine; Visit Provider Physician Assistant
DX: M25.551 Pain in right hip (principal); M65.251 Calcific tendinitis, right thigh; M76.891 Other specified enthesopathies of right lower limb, excluding foot; M53.3 Sacrococcygeal disorders, not elsewhere classified
CPT/HCPCS: 73502

== ENCOUNTER 2021-02-12 00:43 | Outpatient (CLI) | payer BC, SELFPAY ==
--- NOTE | 2021-02-12 | DI.MAMMO_ITS ---
Exam(s) MAMMO SCREENING EXAM: MAMMO SCREENING CLINICAL HISTORY: SCREENING, FAMILY H/O BREAST CA TECHNIQUE: Bilateral full field digital CC and MLO mammographic images were obtained with 3D tomosyn thesis and utilizing computer aided detection (CAD). COMPARISON: Available for comparison. FINDINGS: Masses/Architectural Distortion: None seen. Microcalcifications: No suspicious pleomorphic-type are seen. Skin Thickening/Nipple Retraction: None. IMPRESSION: 1. No significant interval change with no specific features of malignancy noted. 2. Unless there is more urgent need, screening mammography is recommended, as per [place] [employer] guidelines. BI-RADS Category 1 - Negative Breast Density - Category B - Scattered areas of fibroglandular density Breast density category C or D implies that the patient has dense breast tissue. Dense breast tissue is very common and is not abnormal but dense breast tissue can make it harder to find cancer on a ma mmogram. Also, dense breast tissue may increase their breast cancer risk. This information about the result of the mammogram report was provided to the patient to raise their awareness. Use this report when you speak with the patient about their risks for breast cancer, which includes their family hist ory. At that time, you may recommend for more screening tests (Ultrasound or MRI) as they might be us eful based on their risk. A negative radiographic report should not delay biopsy if a dominant or clinically suspicious mass is present. Up to ten percent of cancers are not identified on mammography. A negative report may reinforce clinical impression. Adenosis and dense breasts may obscure an underlying neoplasm. False positive reports average 6 to 10%. Patient will receive a letter notifying them of these results.
== END 2021-02-12 01:03 ==
PROVIDERS: PCP Family Medicine; Visit Provider Family Medicine
DX: Z12.31 Encounter for screening mammogram for malignant neoplasm of breast (principal)
CPT/HCPCS: 77063; 77067

== ENCOUNTER 2021-04-22 19:45 | Outpatient (REF) | payer BC, SELFPAY ==
[2021-04-22 14:42] LABS: Abs Immature Grans 0.01 10^3/uL (0.0-0.06); Absolute Basophil Count 0.06 10^3/uL (0.0-0.2); Absolute Eosinophil Count 0.03 10^3/uL (0.0-0.7); Absolute Lymphocyte Count 1.73 10^3/uL (1.2-3.4); Absolute Monocyte Count 0.44 10^3/uL (0.1-0.8); Basophils % 1.2; Eosinophils % 0.6; HCT 34.5 % (36.0-46.0); HGB 10.6 g/dL (11.2-15.7); Immature Grans % 0.2; Lymphocytes % 33.5; MCH 25.7 pg (27.0-33.0); MCHC 30.7 % (32.0-36.0); MCV 83.5 fL (80-95); MPV 10.8 fL (8.0-11.0); Monocytes % 8.5; Nucleated RBC 0 %; Platelet Count 322 10^3/uL (130-400); RBC 4.13 10^6/uL (3.93-5.22); RDW 13.7 % (11.7-14.6); RDW-SD 42.3 fL; WBC 5.17 10^3/uL (4.4-10.8)
[2021-04-22 15:22] LABS: ALT 51 U/L (14-59); AST 24 U/L (15-37); Alkaline Phosphatase 48 U/L (46-116); Anion Gap 10.5 mmol/L (3-11); BUN 9 mg/dL (7-18); Bilirubin, Total 0.4 mg/dL (0.2-1.0); CO2 25.5 mmol/L (21.0-32.0); CREATININE 0.5 mg/dL (0.55-1.02); Calcium 8.7 mg/dL (8.5-10.1); Chloride 101 mmol/L (98-107); Glucose 92 mg/dL (74-106); Hemoglobin A1C 5.9 % (<5.7); Potassium 4.2 mmol/L (3.5-5.1); Sodium 137 mmol/L (136-145); Total Protein 7.8 g/dL (6.4-8.2)
[2021-04-22 15:24] LABS: Iron 123 ug/dL (50-170)
[2021-04-22 15:44] LABS: Vitamin D 25 Total 35.2 ng/mL (30-100)
[2021-04-23 10:28] LABS: Calculated LDL 209 mg/dL (<100); Cholesterol 295 mg/dL (<200); HDL Cholesterol 73 mg/dL (40-60); Triglyceride 66 mg/dL (<150)
== END 2021-04-22 19:46 | disposition home or self-care (01) ==
LOC: NCHCN 19:45
PROVIDERS: PCP Family Medicine; Visit Provider Family Medicine
DX: E78.5 Hyperlipidemia, unspecified (principal); R73.03 Prediabetes; R74.8 Abnormal levels of other serum enzymes
CPT/HCPCS: 80053; 80061; 82306; 83036; 83540; 85025

== ENCOUNTER 2021-04-28 10:27 | Outpatient (REF) | payer BC, SELFPAY ==
[2021-04-28 14:44] LABS: Reticulocyte 1.5 % (0.5-2.4)
[2021-04-28 15:22] LABS: ESR 15 mm/hr (0-20); Ferritin 9 ng/mL (8-252)
[2021-04-28 17:22] LABS: Iron 26 ug/dL (50-170); Total Iron Binding Capacity 530 ug/dL (250-450); Transferrin Sat 5 % (15-50)
== END 2021-04-28 10:28 | disposition home or self-care (01) ==
LOC: NCHCN 10:27
PROVIDERS: PCP Family Medicine; Visit Provider Family Medicine
DX: R73.03 Prediabetes (principal); E66.9 Obesity, unspecified; R74.8 Abnormal levels of other serum enzymes
CPT/HCPCS: 85652; 82728; 83540; 83550; 85045; 86140

== ENCOUNTER 2021-05-04 09:54 | Outpatient (CLI) | payer BC, SELFPAY ==
--- NOTE | 2021-05-04 09:45 | DI.RAD_ITS ---
Exam(s) XR SHOULDER RT COMPLETE 2+V EXAM: XR SHOULDER RT COMPLETE 2+V CLINICAL HISTORY: Right shoulder pain. TECHNIQUE: 2D digital imaging was performed of the right shoulder. Four images were obtained. AP, Y-view and axillary views were obtained. COMPARISON: CR XR shoulder RT complete 2+V from 09/05/2018 FINDINGS: BONES: No acute fracture is present. No bony destructive lesion is seen. JOINTS: No dislocation present. There appears to be os acromiale with hypertrophic changes across the articulation. SOFT TISSUE: Normal. IMPRESSION: Degenerative changes seen at the shoulder as described above. DATA REPOSITORY: RADIATION DOSE DELIVERED:
== END 2021-05-04 09:55 | disposition home or self-care (01) ==
LOC: DIORS 09:54
PROVIDERS: PCP Family Medicine; Referring Provider Family Medicine; Visit Provider Student in an Organized Health Care Education/Training Program
DX: M25.511 Pain in right shoulder; M75.21 Bicipital tendinitis, right shoulder; M25.811 Other specified joint disorders, right shoulder
CPT/HCPCS: 73030

== ENCOUNTER 2021-06-29 03:53 | Outpatient (CLI) | payer BC, SELFPAY ==
--- NOTE | 2021-06-29 11:00 | NS.NUTBLAN_ITS ---
Jamia was referred for medical nutrition therapy for diet counseling for weight, lipid and blood sugar management. 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 She has no first degree relatives with diabetes or CAD Provided Jamia with diet that emphasizes complex carbs, non starchy vegetables, lean protein and healthy fats. Encouraged daily walk of 1-2 miles daily with goal of losing 10% of her weight to help normalize lipids and blood sugars. Reviewed apps that count carbs and steps daily. Goal weight < 150 lbs No follow up planned at this time.
== END 2021-06-29 03:54 | disposition home or self-care (01) ==
LOC: DS 03:54
PROVIDERS: PCP Family Medicine; Visit Provider Dietitian, Registered
DX: E66.3 Overweight (principal); E78.5 Hyperlipidemia, unspecified; R73.03 Prediabetes; Z71.3 Dietary counseling and surveillance
CPT/HCPCS: 97802

== ENCOUNTER 2021-09-03 00:27 | Outpatient (CLI) | payer BC, SELFPAY ==
--- NOTE | 2021-09-03 07:15 | DI.MRI_ITS ---
Exam(s) MR LOWER JOINT RT WO EXAM: MR LOWER JOINT RT WO CLINICAL HISTORY: persistent trochanteric pain, GLUTEAL TENDINITIS RT HIP, LABRAL TEAR, TECHNIQUE: Multiplanar multisequence MRI of right hip was performed COMPARISON: CR XR HIP RT COMPLETE AP PELVIS from 01/28/2021 FINDINGS: Bones: There is no evidence of a fracture or avascular necrosis. No significant joint effusion or l abral injury is present on this noncontrast examination. There is a tiny 2 mm subchondral cyst in th e right greater trochanter. The SI joints and symphysis pubis are well maintained. Musculotendinous structures: There is mild hyperintense edema seen at the musculotendinous unit of t he right gluteus medius at its insertion site. The findings are suspicious for tendinosis. Intrapel caroline structures demonstrate no significant abnormality. IMPRESSION: Right gluteus medius tendinosis. DATA REPOSITORY:
== END 2021-09-03 00:47 ==
LOC: DI 00:27
PROVIDERS: PCP Family Medicine; Visit Provider Student in an Organized Health Care Education/Training Program
DX: M70.61 Trochanteric bursitis, right hip (principal); M70.62 Trochanteric bursitis, left hip; M76.01 Gluteal tendinitis, right hip; S73.191A Other sprain of right hip, initial encounter; X58.XXXA Exposure to other specified factors, initial encounter
CPT/HCPCS: 73721

== ENCOUNTER 2021-09-14 09:39 | Outpatient (REF) | payer BC, SELFPAY ==
[2021-09-14 14:50] LABS: HCT 35.8 % (36.0-46.0); HGB 11.9 g/dL (11.2-15.7); MCH 28.1 pg (27.0-33.0); MCHC 33.2 % (32.0-36.0); MCV 85 fL (80-95); MPV 11.6 fL (8.0-11.0); Platelet Count 270 10^3/uL (130-400); RBC 4.23 10^6/uL (3.93-5.22); RDW 13.1 % (11.7-14.6); RDW-SD 39.9 fL
[2021-09-14 15:08] LABS: Iron 49 ug/dL (50-170)
[2021-09-14 15:14] LABS: ALT 36 U/L (14-59); AST 18 U/L (15-37); Albumin 3.8 g/dL (3.4-5.0); Alkaline Phosphatase 40 U/L (46-116); Anion Gap 6.4 mmol/L (3-11); BUN 10 mg/dL (7-18); Bilirubin, Total 0.3 mg/dL (0.2-1.0); CO2 28.6 mmol/L (21.0-32.0); CREATININE 0.5 mg/dL (0.55-1.02); Chloride 104 mmol/L (98-107); Glucose 103 mg/dL (74-106); Potassium 3.9 mmol/L (3.5-5.1); Sodium 139 mmol/L (136-145); Total Protein 7.4 g/dL (6.4-8.2)
== END 2021-09-14 09:40 | disposition home or self-care (01) ==
LOC: NCHCN 09:39
PROVIDERS: PCP Family Medicine; Visit Provider Nurse Practitioner Family
DX: D50.9 Iron deficiency anemia, unspecified (principal); K21.9 Gastro-esophageal reflux disease without esophagitis; R74.8 Abnormal levels of other serum enzymes
CPT/HCPCS: 80053; 85027; 83540

== ENCOUNTER 2021-09-15 10:30 | Outpatient (CLI) | payer BC, SELFPAY ==
--- NOTE | 2021-09-15 10:15 | DI.RAD_ITS ---
Exam(s) XR HIP RT AP LAT ONLY EXAM: XR HIP RT AP LAT ONLY CLINICAL HISTORY: RIGHT HIP F/U TECHNIQUE: COMPARISON: CR XR HIP RT COMPLETE AP PELVIS from 01/28/2021 FINDINGS: Two views were obtained. Cartilaginous joint space of the hip appears well maintained. No bony abno rmality seen. Note is made of soft tissue calcifications adjacent to the greater trochanter of the f emur which may represent calcific peritendinitis. Please correlate clinically. IMPRESSION: RADIATION DOSE DELIVERED: Total DLP
== END 2021-09-15 10:31 | disposition home or self-care (01) ==
LOC: DIORS 10:30
PROVIDERS: PCP Family Medicine; Referring Provider Family Medicine; Visit Provider Student in an Organized Health Care Education/Training Program
DX: M77.8 Other enthesopathies, not elsewhere classified (principal)
CPT/HCPCS: 73502

== ENCOUNTER 2021-12-08 02:00 | Outpatient (CLI) | payer BC, SELFPAY ==
--- NOTE | 2021-12-08 | DI.DEXA_ITS ---
Exam(s) XR DEXA BONE DENSITY W/WO CAROLE EXAM: XR DEXA BONE DENSITY W/WO CAROLE CLINICAL HISTORY: LONG-TERM DRUG THERAPY Z79.899 TECHNIQUE: Promuc C densitometer analysis of left hip, lumbar spine and left forearm. COMPARISON: CR XR HIP RT AP LAT ONLY from 09/15/2021 FINDINGS: Lateral view of the thoracic and lumbar spine shows no evidence of compression fractures. Bone mineral density measurements of the lumbar spine correspond to a total T-score of -0.7, in the n ormal range. Bone mineral density measurements of the left hip correspond to a total T-score of 1.2 . The femoral neck T-score is -0.2, in the normal range.. The left forearm bone mineral density measurements correspond to a T-score of the distal 3rd of 0.5, in the normal range.. IMPRESSION: Normal bone mineral density.
== END 2021-12-08 02:20 ==
PROVIDERS: PCP Family Medicine; Visit Provider Internal Medicine Gastroenterology
DX: Z13.820 Encounter for screening for osteoporosis (principal); Z79.899 Other long term (current) drug therapy
CPT/HCPCS: 77080

== ENCOUNTER 2021-12-08 03:26 | Outpatient (CLI) | payer BC, SELFPAY ==
[2021-12-08 08:10] LABS: HCT 35.8 % (36.0-46.0); HGB 11.9 g/dL (11.2-15.7)
[2021-12-08 08:15] LABS: Hemoglobin A1C 5.6 % (<5.7)
[2021-12-08 08:48] LABS: Calculated LDL 185 mg/dL (<100); Cholesterol 274 mg/dL (<200); Ferritin 12 ng/mL (8-252); HDL Cholesterol 69 mg/dL (40-60); Triglyceride 100 mg/dL (<150)
== END 2021-12-08 03:27 | disposition home or self-care (01) ==
LOC: LBO 03:26
PROVIDERS: PCP Family Medicine; Visit Provider Family Medicine
DX: Z00.00 Encounter for general adult medical examination without abnormal findings (principal)
CPT/HCPCS: 36415; 80061; 82728; 83036; 85014; 85018

== ENCOUNTER 2022-01-27 10:17 | Day surgery (SDC) | payer BC, SELFPAY ==
[2022-01-27] VITALS (12 sets, daily range): BP systolic 96–138; BP diastolic 53–86; PULSE 62–84; RESP 11–23; TEMP 36.2–36.5; O2SAT 95–100; BMI 33.1
--- NOTE | 2022-01-27 09:41 | ANES.PREOP_ITS ---
General Info Date of Service Date Performed: 01/27/22 Height: 4 ft 10 in Weight: 72 kg Body Mass Index (BMI): 33.1 Surgical Procedure: Operation Date: 01/27/22 12:35 Proposed Procedure Side Surgeon p Endoscopic Iliotibial band release with trochanteric bursencotmy and possible gluteal tendon repair Right Chuy Hood MD Meds Allergies and Home Medications Allergies Allergy/AdvReac Type Severity Reaction Status Date / Time azithromycin Allergy Severe Verified 01/27/22 10:48 Penicillins Allergy Severe Anaphylaxsi Verified 12/07/21 08:26 s Home Medication Medication Instructions Recorded hydrocortisone 2.5 % topical cream 1 applic topical BID PRN 12/11/20 sumatriptan succinate 100 mg 100 mg PO .COMPLEX PRN migraine 12/11/20 tablet (Imitrex) headache peg 400-propylene glycol 0.4 %-0.3 1 drp ophthalmic (eye) QAM PRN 12/29/20 % eye drops (Systane (propylene glycol)) sucralfate 1 gram tablet (Carafate) 1 g PO BID 12/29/20 pantoprazole 40 mg tablet,delayed 40 mg PO DAILY 12/07/21 release Current Visit Medications: Current Medications Generic Name Dose Route Start Last Admin Trade Name Freq PRN Reason Stop Dose Admin Ringer's Solution 1,000 mls @ 30 mls/hr 01/27/22 06:00 IV 02/25/22 23:59 INFUSION RONI Clindamycin Phosphate/Dextrose 900 mg in 50 mls @ 50 mls/hr 01/27/22 06:00 Cleocin In D5w IVPB 01/27/22 18:00 PREOP RONI IV Miscellaneous Supplies 1 each 01/27/22 06:00 Iv Access IV 02/25/22 23:59 DIRECTED RONI Oxycodone HCl 0 mg 01/27/22 07:28 Oxycodone 5 Mg Tab PO Q3H PRN PRN Pain Sodium Chloride 0 ml 01/27/22 06:00 Normal Saline Flush 10 Ml Syr IV 02/25/22 23:59 PRN PRN Sodium Chloride 0 ml 01/27/22 06:00 Normal Saline 10 Ml Vial IJ 02/25/22 23:59 DIRECTED PRN Sterile Water 0 ml 01/27/22 06:00 Water,Injection,Sterile 10 Ml Vial IJ 02/25/22 23:59 DIRECTED PRN PFSH Active Problems Active Problems: Problem Status Onset Code Biceps tendinitis of right shoulder M75.21 Hyperlipidemia E78.5 Obesity E66.9 Migraine headache with aura G43.109 Tinnitus, bilateral H93.13 Trochanteric bursitis of both hips M70.61, M70.62 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 Calcific tendonitis of right shoulder M75.31 Gluteal tendinitis, right hip M76.01 Labral tear of right hip joint S73.191A Medical History Medical History (Updated 01/27/22 @ 11:49 by Pricila Funez) Abdominal bloating Abdominal pain Allergic rhinitis Anxiety Borderline diabetes Calcific tendinitis Candidal skin infection Constipation Cystocele Dry eye Dry mouth Amber-Danlos syndrome, familial joint laxity type Hernia, hiatal Kidney stones Lipoma of neck Mild acid reflux Obstructive sleep apnea Rosacea Surgical History Surgical History H/O dilation and curettage History of colonoscopy History of esophagogastroduodenoscopy (EGD) S/P ureteral stent placement Tobacco Smoking/Tobacco Use Status: Former Tobacco Use Alcohol Alcohol Intake: current Alcohol intake frequency: a few times a week Substance Use Substance use: Never Substance use type: does not use Prental History History 5 Para 3 Hx # Term Pregnancies Multiple births Hx # Pregnancies Ectopic pregnancies AB induced Hx Number of Living Children AB spontaneous 2 Vital Signs and Lab Results Vital Signs Most Recent Vital Signs in EMR: Temp Pulse Resp BP Pulse Ox 36.4 C L 84 16 138/86 100 01/27/22 11:01 01/27/22 11:01 01/27/22 11:01 01/27/22 11:01 01/27/22 11:01 Lab Results Blood Type / Crossmatch: No Data to Display Complete Blood Count: No Data to Display Complete Metabolic Panel: No Data to Display Liver Function Panel: No Data to Display Coagulation Panel: No Data to Display Cardiac Panel: No Data to Display Arterial Blood Gas: No Data to Display Venous Blood Gas: No Data to Display Pancreas Panel: No Data to Display Thyroid Panel: No Data to Display Infectious Disease: No Data to Display Blood Cultures: No Data to Display Toxicology Panel: No Data to Display Panel: No Data to Display Imaging and Studies Imaging and Studies Study information below may be from another EMR and interpreted by another provider. Please see original notes in EMR for more complete details. EKG Summary: 10/2020: sinus. Pulmonary Function Summary: 04/21: normal. Anesthesia Assessment and Plan Anesthesia History Personal History: No History of Anesthesia Complications Family History: Other Exercise Tolerance Exercise Tolerance: Metabolic Equivalents>4 Cardiac & Pulmonary Exam Cardiac Exam: Normal S1/S2 Heart Sounds Pulmonary Exam: Clear Bilateral Breath Sounds Implantable Cardiac Device Does patient have a Pacemaker or an ICD?: No Airway Exam Known Difficult Airway: No Mallampati Class: 2 Mouth Opening: Normal (> 3cm) Thyromental Distance: Greater than 3 cm Neck Range of Motion: Full ROM Neck Circumference: Normal Teeth Condition: Normal Dentition ASA Classification ASA Score: ASA 2 Emergency Case?: No NPO Status NPO Status: NPO Clears >2 hours, Solids >8 hours Status Status: Negative HCG Anesthesia Plan Resuscitation Status: Full Code Anesthesia Technique: General Anesthesia Airway Planned: Endotracheal Tube Monitors Used: Standard Monitors Preoperative Comments:: 46 yo female for hip scope. Sig PMHx: migraine (headache currently), anxiety, PATRICIA, GERD (pantop has had EGD (normal)at [facility]. Having symptoms currently, she is unsure if it is anxiety or GERD), amber-danlos (hypermobile) former smoker, occ EtOH. Plan: [place]. preop midaz.
[2022-01-27] MEDS: Lactated Ringers 1,000 ML 30 ML IV (11:40)
[2022-01-27] MEDS: Bupivacaine 0.25% Pres-Free W/EPI 30 ML VIAL (12:39)
--- NOTE | 2022-01-27 13:20 | DI.RAD_ITS ---
Exam(s) XR HIP RT IN OR EXAM: XR HIP RT IN OR CLINICAL HISTORY: right trochanteric bursa. TECHNIQUE: 2D and realtime digital imaging was performed. COMPARISON: No exams were available for comparison FINDINGS: Fluoroscopy was provided in the OR. Please see procedure note for details. Fluoro time: 46.5seconds RADIATION DOSE DELIVERED: marta Gary=7.63 mGy
--- NOTE | 2022-01-27 13:31 | W.PM.DSUDISC ---
Date of service: 01/27/22 Time of Service: 13:31 Discharge Plan Disposition Patient Disposition: Home Discharge Details Attending Provider: Chuy Hood Primary Care Provider: Malena Mora Home Meds and New Rx's Prescriptions: New aspirin 81 mg tablet,delayed release (DR/EC) 81 mg PO DAILY 7 Days Qty: 7 0RF Bio-K plus 50 billion cell capsule,delayed release(DR/EC) 1 cap PO DAILY 10 Days Qty: 10 0RF naproxen 250 mg tablet 250 - 500 mg PO BID PRNQty: 20 0RF Rx Instructions: take with a meal oxycodone 5 mg tablet 5 - 10 mg PO Q4H MDD 30 mg PRN (Reason: moderate to severe pain) Qty: 18 0RF Continued Systane (propylene glycol) 0.4-0.3 % drops 1 drp ophthalmic (eye) QAM PRN sucralfate [Carafate] 1 gram tablet 1 g PO BID Label Comments: pt hasnt been taking hydrocortisone 2.5 % cream 1 applic topical BID PRN sumatriptan succinate [Imitrex] 100 mg tablet 100 mg PO .COMPLEX PRN (Reason: migraine headache) Rx Instructions: 100 mg PO PRN; pantoprazole 40 mg tablet,delayed release (DR/EC) 40 mg PO DAILY Discharge Instructions Additional Instructions: Surgery: Right hip endoscopy with iliotibial band release and trochanteric bursectomy Activity: Weightbearing as tolerated. May use crutches or walker as needed for a few days. Gradually advance to full range of motion and activity over the next few weeks. A physical therapy prescription will be sent electronically to begin in about 3 weeks. Prescriptions: Aspirin 81 mg take 1 daily to prevent a blood clot for 7 days Naproxen 250 mg take 1-2 every 12 hours (with a meal) as needed for moderate pain Oxycodone 5 mg take 1-2 every 4-6 hours as needed for severe pain You may use [id number] Tylenol (acetaminophen) as needed for mild pain. These pain medications may be taken all at once or in different combinations as needed. Also, recommend Colace (docusate) as a stool softener as surgery and pain medicine cause constipation. You may try [id number] diphenhydramine (Benadryl) 25-50 mg nightly as a sleep aid Also, recommend probiotic daily for about 10 days to reduce GI issues Dressings: Leave dressing in place for 3 days. May then remove and leave open to air or cover incisions with Band-Aids. May shower after 5 days. Follow-up: 10-[address] Hood You may take off the leg compression stockings this evening at home. You may also leave them on a few days longer if you have a history of leg swelling or edema. Let us know right away if you develop any redness, drainage, fevers, chest pain, or trouble breathing. Do not drink alcohol or drive for at least 24 hours after anesthesia. Please call the office during business hours with any questions or concerns. Add probiotic daily prevent GI issues from Discharge Orders Discharge Orders: Discharge Order (Routine); Ordered 01/27/22 Ordered By: Chuy Hood
--- NOTE | 2022-01-27 13:36 | ROE_ITS ---
Date of service: 01/27/22 Time of Service: 13:36 Operative Note Operative Note DATE OF PROCEDURE: 01/27/22 PRE-OP DIAGNOSIS: Right hip 1. Iliotibial band syndrome 2. Trochanteric bursitis 3. Calcific gluteal tendonitis POST-OP DIAGNOSIS: same PROCEDURE: Right hip endoscopic 1. Iiliotibial band release, CPT# 41272 2. Trochanteric bursectomy, CPT# 42653 SURGEON: Chuy Hood CRUSHER TENDER: None None ANESTHESIA TYPE: Local By Surgeon and General LMA/ETT Refer to Anesthesia Record ESTIMATED BLOOD LOSS: 5 COMPLICATIONS: None Patient was transported to: PACU Patient's condition: stable Indications: Please see complete medical record for details. Findings: Thickened iliotibial band. Abundant inflamed trochanteric bursitis. Intact gluteal tendons. Procedure Description: In the operating room, general anesthesia was induced. The patient was positioned supine on the [facility] operating room table. All bony prominences were well-padded. Preoperative antibiotics were administered. The hip was prepped and draped in the usual sterile fashion. The correct patient, procedure, and side of the procedure were all verified prior to incision. 30 cc of 0.25% bupivacaine containing epinephrine was infiltrated about the subcutaneous tissues for the planned anterior lateral and distal anterolateral portals as well as deeply over the greater trochanter. A knife was used to incise the skin for the anterior lateral and distal anterolateral portals followed by blunt dissection subcutaneously. Under fluoroscopic guidance, a switching stick and arthroscope were inserted localizing the iliotibial band over the greater trochanter. Blunt dissection and the mechanical shaver were used to resect fat and overlying tissue about the center of the iliotibial band and carefully expose the anterior and posterior margins. Once there was adequate exposure of the IT band, the greater trochanter was again localized under fluoroscopic guidance with a spinal needle inserted through the skin down to bone. This central area was marked using the radiofrequency ablator. A [place] blade was brought in and used to create a 2 cm longitudinal incision in line with the IT band fibers as well as extending it in a cruciate fashion with 2 cm incisions anteriorly and posteriorly. The radiofrequency ablator was used to achieve hemostasis. The mechanical shaver was then used to debride the IT band released edges exposing the trochanteric bursa. The mechanical shaver was then used to excise the trochanteric bursa taking care to protect musculature about the margins of the greater trochanter as well as neurovascular structures especially posteriorly. There was excellent visualization of the vastus lateralis as well as gluteus medius confirming appropriate bursa excision. The hip was brought through range of motion including internal and external rotation and there was no impinging iliotibial band tissue or remaining pathologic bursa. The viewing and working portals were switched and appropriate IT band release, trochanteric bursa excision, and hemostasis confirmed. Under fluoroscopic guidance, a spinal needle was directed deep to the proximal intact gluteal tendon and musculature to the site of calcific deposits. The needle was used to agitate this area and attempt suction removal. The switching stick was then brought in to slightly bluntly enlarged and again work around the lesion fluoroscopically and indirectly free up the deposit. Lastly, the shaver was directed into the calcium location and carefully and judiciously turned on and off while redirecting the blade and attempt to remove as much of the calcium deposit as possible while minimizing trauma to the gluteal tendon and muscle. Some calcium had to be left behind the knees indirect methods in order to avoid creating a direct large opening to the deposit for full removal, which was not desired by the patient and is probably not necessary. Suction was used to remove fluid from the endoscopic space. The portals were closed using 3-0 Monocryl in a buried fashion. Steri-Strips were applied over the incisions followed by Xeroform, 4 x 4 gauze, an ABD pad, and secured with tape. The patient awoke from anesthesia without complication and was transferred to the recovery room in a stable condition.
[2022-01-27] MEDS: EPINEPHrine 30 MG/30 ML VIAL (13:41)
--- NOTE | 2022-01-27 13:58 | W.ANESPOSTOP ---
Postoperative Evaluation Date, Time and Location Date Performed: 01/27/22 Time Performed: 13:58 Patient Location: PACU Vital Signs Most Recent Imported Vital Signs: Most Recent Vital Signs Temp Pulse Resp BP Pulse Ox 36.3 C L 76 15 113/56 L 96 01/27/22 13:36 01/27/22 13:36 01/27/22 13:36 01/27/22 13:36 01/27/22 13:36 Pain Score Most Recent Pain Score: Most Recent Pain Score Pain Level 0 01/27/22 11:01 Assessment Mental Status: Awake (Alert & Oriented to Patient Baseline) Airway and Respiratory Function: Patent airway with normal (patient baseline) respiratory exam Cardiovascular Function: Hemodynamically Stable Hydration Status: Adequately Hydrated Nausea & Vomiting: No Nausea or Vomiting Pain: Pain is tolerable per patient Peripheral Nerve Block: Patient did not receive a nerve block
[2022-01-27] MEDS: Normal Saline 10 ML VIAL IJ (14:00)
[2022-01-27] MEDS: HYDROmorphone 2 MG/ML SYR IVP ×2 (14:00→14:11)
[2022-01-27] MEDS: LORazepam 2 MG/ML VIAL 0.5 MG IVP (14:31)
[2022-01-27] MEDS: oxyCODONE 5 MG TAB PO (15:17)
[2022-01-27] MEDS: Droperidol 5 MG/2 ML VIAL 0.625 MG IVP (15:45)
[2022-01-27] MEDS: Ondansetron O.D.T. 4 MG TABEF PO (17:29)
== END 2022-01-27 18:00 | disposition home or self-care (01) ==
PROVIDERS: PCP Family Medicine; Visit Provider Student in an Organized Health Care Education/Training Program
PROC: (CPT 29863; principal; 2022-01-27 12:15)
DX: M76.31 Iliotibial band syndrome, right leg (principal); M76.01 Gluteal tendinitis, right hip; M70.61 Trochanteric bursitis, right hip; R73.03 Prediabetes; E78.5 Hyperlipidemia, unspecified
CPT/HCPCS: 27062; 27305; 81025; 73501; J0131; J0690; J1100; J1170; J1790; J1885; J2060; J2250; J2405; J2704; J3475

== ENCOUNTER 2022-04-27 01:19 | Outpatient (CLI) | payer BC, SELFPAY ==
--- NOTE | 2022-04-27 | DI.MAMMO_ITS ---
Exam(s) MAMMO SCREENING EXAM: MAMMO SCREENING CLINICAL HISTORY: SCREENING, Z12.31 TECHNIQUE: Bilateral full field digital CC and MLO mammographic images were obtained with 3D tomosyn thesis and utilizing computer aided detection (CAD). COMPARISON: Available for comparison. FINDINGS: Masses/Architectural Distortion: There is a new well-circumscribed nodule in the upper right breast o n the MLO view measuring approximately 7 mm in length. Microcalcifications: No suspicious pleomorphic-type are seen. Skin Thickening/Nipple Retraction: None. IMPRESSION: 1. New 7 mm nodule in the upper right breast on the MLO view. 2. This area should be further evaluated with a spot compression view. Limited right breast ultrasou nd is recommended at that time. BI-RADS Category 0 - Assessment Incomplete: Need additional imaging evaluation Breast Density - Category B - Scattered areas of fibroglandular density Breast density category C or D implies that the patient has dense breast tissue. Dense breast tissue is very common and is not abnormal but dense breast tissue can make it harder to find cancer on a ma mmogram. Also, dense breast tissue may increase their breast cancer risk. This information about the result of the mammogram report was provided to the patient to raise their awareness. Use this report when you speak with the patient about their risks for breast cancer, which includes their family hist ory. At that time, you may recommend for more screening tests (Ultrasound or MRI) as they might be us eful based on their risk. A negative radiographic report should not delay biopsy if a dominant or clinically suspicious mass is present. Up to ten percent of cancers are not identified on mammography. A negative report may reinforce clinical impression. Adenosis and dense breasts may obscure an underlying neoplasm. False positive reports average 6 to 10%. Patient will receive a letter notifying them of these results.
== END 2022-04-27 01:39 ==
LOC: DI 01:19
PROVIDERS: PCP Family Medicine; Visit Provider Family Medicine
DX: Z12.31 Encounter for screening mammogram for malignant neoplasm of breast (principal); R92.8 Other abnormal and inconclusive findings on diagnostic imaging of breast
CPT/HCPCS: 77063; 77067

== ENCOUNTER 2022-05-02 01:47 | Outpatient (CLI) | payer BC, SELFPAY ==
--- NOTE | 2022-05-02 10:00 | DI.US_ITS ---
Exam(s) MG MAMMO SCREEN CALL BACK UNI US BREAST RT LIMITED EXAM: MG MAMMO SCREEN CALL BACK UNI CLINICAL HISTORY: 7 MM NODULE IN UPPER RT BREAST MLO VIEW. TECHNIQUE: Craniocaudal and mediolateral oblique spot compression digital Mammography views of the r ightbreast with Tomosynthesis and right breast ultrasound. COMPARISON: MG Screening Bilat Mammo from 08/27/2015 MG Screening Bilat Mammo from 06/19/2017 MG MG MAMMO SCREENING from 11/28/2018 MG MG MAMMO SCREENING from 02/12/2021 MG MG MAMMO SCREENING from 04/27/2022 US US BREAST RT LIMITED from 05/02/2022 FINDINGS: Mammography/Tomosynthesis: Masses/Architectural Distortion: Persistent lobulated nodule in the upper outer quadrant. This has t he appearance of an intramammary lymph node. This is not changed significantly over time. Microcalcifictions: No suspicious pleomorphic-type are seen. Skin Thickening/Nipple Retraction: None. Right breast US: Echotexture: Normal appearance of the glandular tissue. Shadowing: No suspicious foci. Cyst: None. Solid lesions: No suspicious lesions. 10 millimeter lymph node upper outer quadrant 10 o'clock posit ion 7 cm from the nipple. Ductal dilation: None. IMPRESSION: 1. No evidence of malignancy is noted. 2. Unless there is more urgent need, follow-up screening mammography is recommended, as per [place] [employer] guidelines. 3. The findings were discussed with the patient on the date of the examination. BI-RADS Category 1 - Negative Breast Density - Category B - Scattered areas of fibroglandular density A negative radiographic report should not delay biopsy if a dominant or clinically suspicious mass is present. Up to ten percent of cancers are not identified on mammography. A negative report may reinforce clinical impression. Adenosis and dense breasts may obscure an underlying neoplasm. False positive reports average 6 to 10%. Patient will receive a letter notifying them of these results.
== END 2022-05-02 02:07 ==
LOC: DI 01:47
PROVIDERS: PCP Family Medicine; Visit Provider Family Medicine
DX: Z12.31 Encounter for screening mammogram for malignant neoplasm of breast (principal); R92.8 Other abnormal and inconclusive findings on diagnostic imaging of breast; N63.11 Unspecified lump in the right breast, upper outer quadrant; N60.81 Other benign mammary dysplasias of right breast
CPT/HCPCS: 76642; 77063; 77067

== ENCOUNTER 2022-06-28 14:35 | Outpatient (CLI) | payer BC, SELFPAY ==
[2022-06-28 13:50] LABS: Uric Acid 3.1 mg/dL (2.6-6.0)
== END 2022-06-28 14:36 | disposition home or self-care (01) ==
PROVIDERS: PCP Family Medicine
DX: M25.541 Pain in joints of right hand (principal); M25.542 Pain in joints of left hand
CPT/HCPCS: 36415; 84550

== ENCOUNTER 2022-07-11 14:44 | Outpatient (REF) | payer BC, SELFPAY ==
[2022-07-11 16:22] LABS: Hemoglobin A1C 5.7 % (<5.7)
[2022-07-11 16:56] LABS: Calculated LDL 181 mg/dL (<100); Cholesterol 266 mg/dL (<200); HDL Cholesterol 70 mg/dL (40-60); Triglyceride 76 mg/dL (<150)
== END 2022-07-11 14:45 | disposition home or self-care (01) ==
LOC: NCHCN 14:44
PROVIDERS: PCP Family Medicine; Visit Provider Family Medicine
DX: R73.03 Prediabetes (principal); E78.5 Hyperlipidemia, unspecified
CPT/HCPCS: 80061; 83036

== ENCOUNTER 2022-08-31 14:13 | Outpatient (CLI) | payer BC, SELFPAY ==
[2022-08-31 15:24] LABS: Anion Gap 8.3 mmol/L (3-11); BUN 10 mg/dL (7-18); C-Reactive Protein 0.12 mg/dL (0.0-0.3); CO2 26.7 mmol/L (21.0-32.0); CREATININE 0.6 mg/dL (0.55-1.02); Calcium 8.8 mg/dL (8.5-10.1); Chloride 106 mmol/L (98-107); Creatine Kinase 104 U/L (26-192); Estimated GFR 111.34 (mL/min/1.73m2); FREE T4 0.93 ng/dL (0.76-1.46); Glucose 102 mg/dL (74-106); Magnesium 1.9 mg/dL (1.8-2.4); Potassium 3.8 mmol/L (3.5-5.1); Sodium 141 mmol/L (136-145); TSH 0.86 uIU/mL (0.36-3.74)
[2022-08-31 15:48] LABS: Iron 103 ug/dL (50-170); Total Iron Binding Capacity 439 ug/dL (250-450); Transferrin Sat 23 % (15-50)
== END 2022-08-31 14:14 | disposition home or self-care (01) ==
LOC: LBO 14:14
PROVIDERS: PCP Family Medicine; Visit Provider Family Medicine
DX: R25.2 Cramp and spasm (principal); M77.9 Enthesopathy, unspecified; M79.609 Pain in unspecified limb
CPT/HCPCS: 36415; 80048; 82550; 83540; 83550; 83735; 84439; 84443; 86140

== ENCOUNTER 2022-10-14 01:43 | Outpatient (CLI) | payer BC, SELFPAY ==
[2022-10-14 12:19] LABS: ESR 13 mm/hr (0-20)
[2022-10-14 17:36] LABS: Rheumatoid Factor <8.6 IU/mL (<12.0)
[2022-10-16 09:11] LABS: HLA-B27 Result Negative
[2022-10-17 09:43] LABS: Lyme Ab w Rflx to Lyme Confirm Negative (Negative)
[2022-10-17 09:49] LABS: Cyclic Citrullinated Peptide <2.5 U/mL (<5.0)
[2022-10-18 16:47] LABS: ANA Interpretation Negative (Negative)
== END 2022-10-14 01:44 | disposition home or self-care (01) ==
LOC: LOS 01:44
PROVIDERS: PCP Family Medicine; Visit Provider Orthopaedic Surgery
DX: M25.541 Pain in joints of right hand (principal); M25.542 Pain in joints of left hand
CPT/HCPCS: 36415; 85652; 86200; 86812; 86038; 86431; 86618

== ENCOUNTER 2022-12-01 15:55 | Outpatient (REF) | payer BC, SELFPAY ==
[2022-12-01 21:46] LABS: HCT 38.8 % (36.0-46.0); HGB 12.6 g/dL (11.2-15.7); MCH 28.1 pg (27.0-33.0); MCHC 32.5 % (32.0-36.0); MCV 86 fL (80-95); MPV 10.6 fL (8.0-11.0); Platelet Count 315 10^3/uL (130-400); RBC 4.49 10^6/uL (3.93-5.22); RDW 12.8 % (11.7-14.6); RDW-SD 40.3 fL; WBC 9.69 10^3/uL (4.4-10.8)
[2022-12-02 20:42] LABS: FSH 5.2 mIU/mL (See Note)
[2022-12-04 11:38] LABS: Angiotensin Converting Enzyme 22 U/L (16 - 85)
== END 2022-12-01 15:56 | disposition home or self-care (01) ==
LOC: NCHCN 15:55
PROVIDERS: PCP Family Medicine; Visit Provider Family Medicine
DX: N92.0 Excessive and frequent menstruation with regular cycle (principal); M65.9 Synovitis and tenosynovitis, unspecified; D50.9 Iron deficiency anemia, unspecified
CPT/HCPCS: 82164; 85027; 83001

== ENCOUNTER → 2022-12-07 02:44 | Outpatient (CLI) | payer BC, SELFPAY ==
--- NOTE | 2022-12-07 08:00 | DI.MRI_ITS ---
Exam(s) MR UPPER JOINT RT WO EXAM: MR UPPER JOINT RT WO CLINICAL HISTORY: pain,TENDONITIS LONG HEAD OF BICEPS RT SHOULDER, M75.21. TECHNIQUE: Multiplanar multisequence MRI was performed. COMPARISON: Plain films 04 May 2021 FINDINGS: The exam is somewhat limited by motion. BONES: There is no fracture or contusion pattern. JOINTS:The acromioclavicular joint shows no significant spurring.. An os acromiale is noted. The glenohumeral joint shows no fluid. TENDONS: Supraspinatus: Mild thickening anteriorly. Infraspinatus: Unremarkable. Subscapularis: Unremarkable. Teres Minor: Unremarkable. Biceps and [place]: Small amount of fluid is noted on in the biceps tendon sheath. No tear visible. MUSCLES: Unremarkable. GLENOID LABRUM: Unremarkable on this noncontrast examination. SOFT TISSUES: Unremarkable. OTHER: Subacromial and subdeltoid bursae shows no significant fluid.. IMPRESSION: Supraspinatus tendinosis. Small amount of fluid around the biceps tendon. Biceps tendon is otherwise normal. DATA REPOSITORY:
== END ==
PROVIDERS: PCP Family Medicine; Visit Provider Student in an Organized Health Care Education/Training Program
DX: M75.21 Bicipital tendinitis, right shoulder (principal); M77.8 Other enthesopathies, not elsewhere classified
CPT/HCPCS: 73221

== ENCOUNTER 2023-03-02 12:08 | Outpatient (REF) | payer BC, SELFPAY ==
[2023-03-02 15:24] LABS: Creatine Kinase 61 U/L (26-192)
== END 2023-03-02 12:09 | disposition home or self-care (01) ==
LOC: NCHCN 12:08
PROVIDERS: PCP Family Medicine; Visit Provider Family Medicine
DX: M79.601 Pain in right arm (principal)
CPT/HCPCS: 82550

== ENCOUNTER 2023-03-29 13:33 | Outpatient (REF) | payer BC, SELFPAY ==
[2023-03-29 14:46] LABS: Hemoglobin A1C 5.3 % (<5.7)
[2023-03-29 15:27] LABS: ALT 64 U/L (14-59); AST 24 U/L (15-37); Albumin 3.9 g/dL (3.4-5.0); Alkaline Phosphatase 48 U/L (46-116); Anion Gap 11.7 mmol/L (3-11); BUN 10 mg/dL (7-18); Bilirubin, Total 0.3 mg/dL (0.2-1.0); CO2 26.3 mmol/L (21.0-32.0); CREATININE 0.7 mg/dL (0.55-1.02); Calcium 9.3 mg/dL (8.5-10.1); Chloride 102 mmol/L (98-107); Estimated GFR 106.62 (mL/min/1.73m2); Glucose 93 mg/dL (74-106); Magnesium 2.2 mg/dL (1.8-2.4); Potassium 4.4 mmol/L (3.5-5.1); Sodium 140 mmol/L (136-145); Total Protein 7.8 g/dL (6.4-8.2); Vitamin B12 556 pg/mL (193-986)
[2023-03-29 15:48] LABS: PHOSPHORUS 4.1 mg/dL (2.6-4.7)
== END 2023-03-29 13:34 | disposition home or self-care (01) ==
LOC: NCHCN 13:33
PROVIDERS: PCP Family Medicine; Visit Provider Family Medicine
DX: R73.03 Prediabetes (principal); G62.9 Polyneuropathy, unspecified
CPT/HCPCS: 80053; 82607; 83036; 83735; 84100

== ENCOUNTER 2023-08-29 15:10 | Emergency (ER) | payer BC, SELFPAY ==
--- NOTE | 2023-08-29 15:00 | RT.EKG_ITS ---
APPROVED REPORT Exam: Resting ECG Reason for Exam: chest pain Patient Location: E HR:75 bpm ECG Measurements Heart Rate 75 AXIS NH 131 P 32 QRSd 78 QRS 2 QT 403 T 55 QTc 449 Conclusion Sinus rhythm...normal P axis, V-rate 60- 99
[2023-08-29 15:17] VITALS: BP 126/72; PULSE 75; RESP 16; TEMP 36.6; O2SAT 100
--- NOTE | 2023-08-29 16:30 | ED.GENADUL_ITS ---
Discharge Plan Disposition Patient Disposition: Home Condition: Stable Discharge Details Clinical Impression: Chest pain of uncertain etiology Primary Care Provider: Malena Mora ED Provider: Benson Mercado Home Meds and New Rx's Prescriptions: Continued Systane (propylene glycol) 0.4-0.3 % drops 1 drp ophthalmic (eye) QAM PRN sulfasalazine 500 mg tablet,delayed release (DR/EC) 0.5 g PO BID Patient Comments: filled but never started taking. hydrocortisone 2.5 % cream 1 applic topical BID PRN sumatriptan succinate [Imitrex] 100 mg tablet 100 mg PO .COMPLEX PRN (Reason: migraine headache) Rx Instructions: 100 mg PO PRN; One-A-Day Women's Healthy Skin 18 mg iron-400 mcg-6 mg tablet 1 tab PO DAILY AM Artificial Eye Lubricant 83-15 % ointment 1 applic ophthalmic (eye) BID-QID PRN omega-3 fatty acids-fish oil [Fish Oil] 360-1,200 mg capsule 1 cap PO DAILY cyclobenzaprine 5 mg tablet 5 mg PO QHS Patient Comments: took for 3 night last week but woke once with heart 'jumping out of chest', stopped taking. naproxen 250 mg tablet 250 - 500 mg PO BID PRNQty: 20 0RF Rx Instructions: take with a meal Discharge Instructions Instructions: Costochondritis, Acid reflux and GERD in adults, Chest Pain, Adult ED Additional Instructions: You were seen in the emergency department for your pleuritic chest pain and mid back pain, this is not cardiac in nature, there is no blood clot in your lungs your cardiac enzymes are normal. Your EKG shows no acute changes, you likely have musculoskeletal chest pain-please take Tylenol and NSAIDs as needed, you may purchase dmor-tmc-wgroalw diclofenac topical gel to place on areas of pain, apply gentle heat or ice to areas of pain, gentle massage may help, your x-ray shows no acute rib abnormalities, lungs appear normal, you do have bilateral calcific tendinitis in your shoulders that you can address by seeking an orthopedic referral for. Please take gwms-key-ainviuj famotidine 20 mg twice per day for your acid reflux, you may want to follow-up with your primary care and seek an upper endoscopy at some point to rule out a stomach ulcer. Seek an MRI of Cervical Spine wo Contrast for cervical radiculopathy through PCP. I have provided a PT referral for physical therapy visits in the meantime. Please return to the emergency department for severe increase in chest pain, respiratory distress, coughing up of blood, productive cough, chest pain with exertion, dizziness, near fainting or other emergent concerns. Stand Alone Forms: Physical Therapy Referral Referrals: Malena Mora [Primary Care Provider] - HPI General Date/Time Provider Initiated Documentation: 08/29/23 15:30 . HPI Narrative: 47 year-old male presents to ED today by POV/ambulating with a chief complaint of chronic pains of arms and legs- has been prescribed medications, but not taking some out of preference, current complaint of L rib pain, sharp and pleuritic, mid-back pain between shoulderblades, and increasing heartburn lately with onset over the past week- worse since this morning. Quality described as sharp stabbing L rib pain- like a heavy weight on her chest, no radiation to shortness of breath, cough, hemoptysis, fever, productive cough, dizziness, diaphoresis, vomiting, focal abdominal pain. Severity is described as 8/10. Palliating factors include nothing specific attempted. Provoking factors include nothing specific. Events leading up to the incident/Associated Symptoms: Patient states she is being worked up for thoracic outlet syndrome. Patient not anticoagulated. Related Data Home Medications ?Medication ?Instructions ?Recorded ?Confirmed hydrocortisone 2.5 % topical cream 1 applic topical BID PRN 12/11/20 08/29/23 sumatriptan succinate 100 mg 100 mg PO .COMPLEX PRN migraine 12/11/20 08/29/23 tablet (Imitrex) headache peg 400-propylene glycol 0.4 %-0.3 1 drp ophthalmic (eye) QAM PRN 12/29/20 08/29/23 % eye drops (Systane (propylene glycol)) naproxen 250 mg tablet 250 - 500 mg (1 - 2 x 250 mg) PO 01/27/22 08/29/23 BID PRN #20 tabs cyclobenzaprine 5 mg tablet 5 mg PO QHS 02/28/23 08/29/23 mv,Ca,oxk-alos-ocvcf acid-lutein 1 tab PO DAILY AM 02/28/23 08/29/23 18 mg iron-400 mcg-6 mg tablet (One-A-Day Women's Healthy Skin) omega-3 fatty acids-fish oil 360 1 cap PO DAILY 02/28/23 08/29/23 mg-1,200 mg capsule (Fish Oil) white petrolatum-mineral oil 83 1 applic ophthalmic (eye) BID-QID 02/28/23 08/29/23 %-15 % eye ointment (Artificial PRN Eye Lubricant) sulfasalazine 500 mg 0.5 g PO BID 08/15/23 08/29/23 tablet,delayed release Previous Rx's ?Medication ?Instructions ?Recorded naproxen 250 mg tablet 250 - 500 mg (1 - 2 x 250 mg) PO 01/27/22 BID PRN #20 tabs Allergies Allergy/AdvReac Type Severity Reaction Status Date / Time azithromycin Allergy Severe Wheezing Verified 08/29/23 15:14 Penicillins Allergy Severe Anaphylaxsi Verified 08/29/23 15:14 s General Stated Complaint: Chest Pain NORBERTO: 3 Review of Systems All systems reviewed & are unremarkable except as noted in HPI and below Exam Narrative Exam Narrative: GENERAL APPEARANCE: Well-nourished, non-toxic, awake and alert, atraumatic, no acute distress. SKIN: Warm, pink, dry, intact, without rashes/lesions/ulcerations. HEAD: Normocephalic, atraumatic, normal hair distribution for gender/age. EYES: Pupils PERRLA, EOMs intact without nystagmus, normal conjunctiva, no exudates on lids/lashes. ENT: Nares patent, no circumoral cyanosis, no facial swelling NECK: Supple, trachea midline, painless cervical ROM. LUNGS/CHEST: Lungs CTA bilaterally- no rhonchi/rales/wheezes diffusely, non- labored respirations, normal A/P diameter, symmetrical expansion, no chest wall deformity, L upper anterior chest tenderness without crepitus, mid-thoracic parapsinal palpable muscle tension HEART (CV/PV): Regular rate and rhythm without murmur, no peripheral edema, no JVD. ABDOMEN: Soft, non-distended, no guarding. MSK: Normal ROM, no swelling/deformity to bilateral UEs or LEs, moving all extremities without weakness, no cyanosis, spine midline without tenderness, normal curvature. NEURO: Mental Status AAOx4 - alert to person, place, time, events No facial droop, no forehead involvement. Motor: No focal weakness - strength 5/5 in bilateral UEs and LEs, proximal and distal, symmetric. Sensory: sensation intact to light touch globally. Gait normal: patient ambulated without ataxia into ED room. PSYCH: euthymic, cooperative, pleasant, appropriate speech Course Vital Signs Vital signs: Vital Signs Temperature 36.6 C 08/29/23 15:17 Pulse 75 08/29/23 15:17 Respiratory Rate 16 08/29/23 15:17 Blood Pressure 126/72 08/29/23 15:17 Pulse Oximetry 100 08/29/23 15:17 Temperature 36.6 C 08/29/23 15:17 Temperature Source Temporal Artery Scan 08/29/23 15:17 Pulse 75 08/29/23 15:17 Respiratory Rate 16 08/29/23 15:17 Respiratory Effort Normal, Short of Breath 08/29/23 15:20 Blood Pressure 126/72 08/29/23 15:17 Blood Pressure Position Sitting 08/29/23 15:17 Pulse Oximetry 100 08/29/23 15:17 Oxygen Delivery Method Room Air 08/29/23 15:17 Oxygen Flow Rate 0 08/29/23 15:17 Pain Level 8 08/29/23 15:17 Medical Decision Making This dictation utilizes [id number] dictation software and may contain unedited grammatical errors. 47 year-old male presents to ED today by POV/ambulating with a chief complaint of chronic pains of arms and legs- has been prescribed medications, but not taking some out of preference, current complaint of L rib pain, sharp and pleuritic, mid-back pain between shoulderblades, and increasing heartburn lately with onset over the past week- worse since this morning. Quality described as sharp stabbing L rib pain- like a heavy weight on her chest, no radiation to shortness of breath, cough, hemoptysis, fever, productive cough, dizziness, diaphoresis, vomiting, focal abdominal pain. Severity is described as 8/10. Palliating factors include nothing specific attempted. Provoking factors include nothing specific. Events leading up to the incident/Associated Symptoms: Patient states she is being worked up for thoracic outlet syndrome. Patients' medical history: Enthesiopathy, GERD, anemia, sciatica, prediabetes, Amber-Danlos, anxiety, calcific tendinitis, bursitis, ganglion cyst of bilateral wrist. Family and social history: endorses FHx of cardiac disease, nonspecific. Pertinent exam findings / vital signs include pleuritic left rib pain, lungs CTA, benign cardiac exam, no carotid bruits, no focal abdominal tenderness, neurovascular intact in bilateral upper extremities, atraumatic. Differential / pathologies of concern include pleuritic chest pain, pulmonary embolism, ACS, fibromyalgia, pleurisy, GERD. Diagnostic studies of: -CBC, CMP, lactate, D-dimer, lipase, troponin, EKG, x-ray of bilateral rib series. -CBC benign -D-dimer negative, do not suspect PE -lipase WNL -Trop negative with reliable onset -Lactate negative -XR without PNA or rib abnormality, no PTX Interventions of: -Tylenol, Toradol, cyclobenzaprine, famotidine. ED Course/Assessment/Plan: 47-year-old female presents with pleuritic chest pain, is anxious, has nevarez gential story about thoracic outlet syndrome, do not suspect acute coronary syndrome or pulmonary embolism, there is no pneumonia or rib abnormality seen on x-ray, counseled the patient on conservative management for musculoskeletal pain, counseled on bilateral calcific tendinitis which is already in the patient's historical problem list, encouraged her to take famotidine twice daily for GERD as needed, strict return criteria for worsening chest pain, shortness of breath, hemoptysis or other acute emergent concerns. Findings not consistent with acute coronary syndrome, pulmonary embolism, pn eumonia, rib abnormality. Disposition of Chest Pain of Uncertain Etiology. Patient verbalized understanding of the plan and return to ED criteria and engaged in shared decision making. Medical Records Medical records reviewed: Yes I reviewed the patient's medical records. Imaging Data Radiologic Study: Attestation: I personally reviewed and interpreted this imaging study as follows: Imaging: X-Ray Radiologist's impression: EXAM: XR RIBS BI INCLUDE CHEST CLINICAL HISTORY: L upper rib/back pain TECHNIQUE: 2D digital imaging was performed. COMPARISON: CR XR CHEST 2V PA LATERAL from 10/30/2020 FINDINGS: RIBS 7 VIEWS-BILATERAL: There are no obvious acute rib fractures evident. No lytic rib lesions identified. Incidentally noted is calcific rotator cuff tendinitis/bursitis in both shoulders, more evident on the left side. CXR- 2 VIEWS: No lung contusion or pneumothorax. There is no pleural effusion evident. Heart size is normal and there is no significant mediastinal widening. IMPRESSION: 1. No obvious rib fractures evident. Also no significant rib lesions. 2. No ipsilateral lung nor pleural abnormality evident. No pneumothorax. 3. Bilateral calcific rotator cuff tendinitis/bursitis incidentally noted. Lab Data Lab results reviewed: Yes I reviewed the patient's lab results. Labs: Laboratory Tests Range/Units 08/29/23 08/29/23 16:30 17:19 WBC (4.4-10.8) 10^3/uL 8.01 RBC (3.93-5.22) 10^6/uL 4.15 Hgb (11.2-15.7) g/dL 11.9 Hct (36.0-46.0) % 36.0 MCV (80-95) fL 87 MCH (27.0-33.0) pg 28.7 MCHC (32.0-36.0) % 33.1 RDW (11.7-14.6) % 13.2 Plt Count (130-400) 10^3/uL 297 MPV (8.0-11.0) fL 10.1 Immature Gran % % 0.2 Neutrophils % % 59.3 Lymphocytes % % 31.1 Monocytes % % 7.7 Eosinophils % % 0.7 Basophils % % 1.0 Nucleated RBC % (0.0-0.3) % 0.0 Absolute Neutrophils (1.2-6.7) 10^3/uL 4.74 Absolute Lymphocytes (1.2-3.4) 10^3/uL 2.49 Absolute Monocytes (0.1-0.8) 10^3/uL 0.62 Absolute Eosinophils (0.0-0.7) 10^3/uL 0.06 Absolute Basophils (0.0-0.2) 10^3/uL 0.08 D-Dimer (<500) ng/mlFEU 311 VBG Lactate (0.6-1.4) mmol/L 0.9 Sodium (136-145) mmol/L 139 Potassium (3.5-5.1) mmol/L 3.1 L Chloride (98-107) mmol/L 102 Carbon Dioxide (21.0-32.0) mmol/L 24.8 Anion Gap (3-11) mmol/L 12.2 H BUN (7-18) mg/dL 13 Creatinine (0.55-1.02) mg/dL 0.7 Est GFR (CKD-EPI 2020) (mL/min/1.73m2) 106.62 Glucose (74-106) mg/dL 128 H Calcium (8.5-10.1) mg/dL 9.0 Total Bilirubin (0.2-1.0) mg/dL 0.27 AST (15-37) U/L 16 ALT (14-59) U/L 38 Alkaline Phosphatase (46-116) U/L 46 Troponin I (< or =60) ng/L < 50 Total Protein (6.4-8.2) g/dL 7.8 Albumin (3.4-5.0) g/dL 3.7 Lipase (16-77) U/L 66 Quality:[facility] Health Related Social Needs: No Data to Display PFSH All Active Problems (Updated 08/29/23 @ 19:08 by PEYMAN Ferrera) Chest pain of uncertain etiology (Acute) Left wrist tendinitis (Acute) Tendonitis of wrist, right (Acute) Medial epicondylitis, left elbow (Acute) Amber-Danlos syndrome (Acute) Tendonitis of long head of biceps brachii of right shoulder (Acute) Ganglion cyst of both wrists (Acute) Hyperlipidemia (Acute) Obesity (Chronic) Migraine headache with aura (Acute) Tinnitus, bilateral (Acute) Trochanteric bursitis of both hips (Acute) Femoroacetabular impingement of right hip (Acute) Calcific tendonitis of right shoulder (Acute) Medical History Melena Hypermagnesemia Itch of skin Disorder of nasal sinus Abdominal pain in female Cough Dyspnea Disorder of ear Paresthesia Chest pain Skin nodule Traumatic arthropathy involving hand Enthesopathy Chronic disease of adenoids GERD (gastroesophageal reflux disease) Excessive and frequent menstruation Anemia, iron deficiency Sciatica Diaphragmatic hernia Lipoma of head Migraine History of prediabetes Hx of urinary stone Anxiety disorder Amber-Danlos syndrome, familial joint laxity type Labral tear of right hip joint Obstructive sleep apnea Cystocele Dry eye Rosacea Allergic rhinitis Calcific tendinitis Constipation Dry mouth Lipoma of neck Abdominal bloating Mild acid reflux Hernia, hiatal Borderline diabetes Abdominal pain Candidal skin infection Kidney stones Anxiety Surgical History Greater trochanteric bursitis of right hip Status post right hip endoscopy DOS: 01/27/2022 History of esophagogastroduodenoscopy (EGD) History of colonoscopy Gluteal tendinitis, right hip Status post right hip endoscopy DOS: 01/27/2022 S/P ureteral stent placement H/O dilation and curettage Family History Father Diabetes Heart disease Grandmother Breast cancer paternal Maternal Aunt Breast cancer paternal Maternal Aunt Breast cancer paternal Mother Amber-Danlos syndrome Sister Amber-Danlos syndrome Son Amber-Danlos syndrome Son Amber-Danlos syndrome Daughter Amber-Danlos syndrome Social History Smoking/Tobacco Use Status: Former Tobacco Use Smoking risk assessment performed?: Yes Alcohol Intake: current Alcohol Intake frequency: a few times a week Drug use: Never Substance use type: does not use Housing: house Current gender identity: female Do you feel safe at home: Yes Do you feel safe in your relationship?: Yes Female Reproductive History Menstrual control method: none History History 5 Para 3 Hx # Term Pregnancies Multiple births Hx # Pregnancies Ectopic pregnancies AB induced Hx Number of Living Children AB spontaneous 2
[2023-08-29 16:38] VITALS: RESP 16
[2023-08-29 17:16] LABS: Abs Immature Grans 0.02 10^3/uL (0.0-0.06); Absolute Basophil Count 0.08 10^3/uL (0.0-0.2); Absolute Eosinophil Count 0.06 10^3/uL (0.0-0.7); Absolute Lymphocyte Count 2.49 10^3/uL (1.2-3.4); Absolute Monocyte Count 0.62 10^3/uL (0.1-0.8); Absolute Neutrophil Count 4.74 10^3/uL (1.2-6.7); Eosinophils % 0.7 %; HGB 11.9 g/dL (11.2-15.7); Immature Grans % 0.2 %; Lymphocytes % 31.1 %; MCH 28.7 pg (27.0-33.0); MCHC 33.1 % (32.0-36.0); MCV 87 fL (80-95); MPV 10.1 fL (8.0-11.0); Monocytes % 7.7 %; Neutrophils % 59.3 %; Platelet Count 297 10^3/uL (130-400); RBC 4.15 10^6/uL (3.93-5.22); RDW 13.2 % (11.7-14.6); RDW-SD 42.1 fL; WBC 8.01 10^3/uL (4.4-10.8)
[2023-08-29 17:22] LABS: Lactate 0.9 mmol/L (0.6-1.4)
[2023-08-29 17:33] LABS: ALT 38 U/L (14-59); AST 16 U/L (15-37); Albumin 3.7 g/dL (3.4-5.0); Alkaline Phosphatase 46 U/L (46-116); Anion Gap 12.2 mmol/L (3-11); BUN 13 mg/dL (7-18); Bilirubin, Total 0.27 mg/dL (0.2-1.0); CO2 24.8 mmol/L (21.0-32.0); CREATININE 0.7 mg/dL (0.55-1.02); Chloride 102 mmol/L (98-107); Estimated GFR 106.62 (mL/min/1.73m2); Glucose 128 mg/dL (74-106); Lipase 66 U/L (16-77); Potassium 3.1 mmol/L (3.5-5.1); Sodium 139 mmol/L (136-145); Total Protein 7.8 g/dL (6.4-8.2)
[2023-08-29 17:39] LABS: Troponin I < 50 ng/L (< or =60)
[2023-08-29 17:51] LABS: D-Dimer 311 ng/mlFEU (<500)
--- NOTE | 2023-08-29 18:04 | DI.RAD_ITS ---
Exam(s) XR RIBS BI INCLUDE CHEST EXAM: XR RIBS BI INCLUDE CHEST CLINICAL HISTORY: L upper rib/back pain TECHNIQUE: 2D digital imaging was performed. COMPARISON: CR XR CHEST 2V PA LATERAL from 10/30/2020 FINDINGS: RIBS 7 VIEWS-BILATERAL: There are no obvious acute rib fractures evident. No lytic rib lesions identified. Incidentally noted is calcific rotator cuff tendinitis/bursitis in both shoulders, more evident on th e left side. CXR- 2 VIEWS: No lung contusion or pneumothorax. There is no pleural effusion evident. Heart size is normal and there is no significant mediastinal widening. IMPRESSION: 1. No obvious rib fractures evident. Also no significant rib lesions. 2. No ipsilateral lung nor pleural abnormality evident. No pneumothorax. 3. Bilateral calcific rotator cuff tendinitis/bursitis incidentally noted. DATA REPOSITORY: RADIATION DOSE DELIVERED:
[2023-08-29] MEDS: Acetaminophen 500 MG TAB 1000 MG PO (18:14)
[2023-08-29] MEDS: Cyclobenzaprine 10 MG TAB PO (18:14)
[2023-08-29] MEDS: Ketorolac 10 MG TAB PO (18:14)
[2023-08-29] MEDS: Famotidine 20 MG TAB 40 MG PO (18:38)
[2023-08-29 19:25] VITALS: BP 163/74; PULSE 72; RESP 16; O2SAT 97
== END 2023-08-29 19:26 | disposition home or self-care (01) ==
PROVIDERS: Emergency Provider Physician Assistant; PCP Family Medicine
DX: R07.9 Chest pain, unspecified (principal); R06.02 Shortness of breath
CPT/HCPCS: 80053; 83690; 93005; 99284; 71046; 71110; 83605; 84484; 85025; 85379; 93010; 99283

== ENCOUNTER → 2023-09-01 00:34 | Outpatient (CLI) | payer BC, SELFPAY ==
--- NOTE | 2023-09-01 | DI.MRI_ITS ---
Exam(s) MR UPPER JOINT LT WO EXAM: MR UPPER JOINT LT WO CLINICAL HISTORY: LT WRIST PAIN, M25.532 TECHNIQUE: Multiplanar multisequence MRI of the shoulder was performed. COMPARISON: MR MR WRIST RIGHT WO CONTRAST from 09/20/2022 FINDINGS: OSSEOUS/ARTICULATIONS: There is no evidence of fracture, bone contusion, carpal dislocation, avascular necrosis, nor signifi cant ulnar variance. No evidence of ulnolunate abutment/impaction. There is a small radiocarpal joint effusion. Also small amount of fluid in the distal radioulnar join t. There is no evidence of para-articular ganglion cysts. No evidence of subchondral cyst formation in the carpal row bones nor within the distal radius and ul na. Mild degenerative changes 1st carpometacarpal joint. LIGAMENTS: Scapholunate ligament appears intact Lunotriquetral ligament appears intact TRIANGULAR FIBROCARTILAGE: No full-thickness tears evident. Some degenerative change noted at the uln ar attachment. TENDONS: FIRST EXTENSOR COMPARTMENT: Abductor pollicis longus and extensor pollicis brevis exhibit mild tendin osis signal. No high-grade tear. No obvious tenosynovitis. SECOND EXTENSOR COMPARTMENT: Extensor or carpi radialis longus and brevis tendons appear unremarkable THIRD EXTENSOR COMPARTMENT: Extensor pollicis longus tendon appears unremarkable FOURTH EXTENSOR COMPARTMENT: Extensor digitorum and extensor or indicis tendons appear unremarkable FIFTH EXTENSOR COMPARTMENT: Extensor digiti minimi appears unremarkable SIXTH EXTENSOR COMPARTMENT: Extensor carpi ulnaris exhibits some tendinosis. No high-grade tearing. N o tenosynovitis. CARPAL TUNNEL/MEDIAN NERVE: Unremarkable FLEXOR CARPI ULNARIS TENDON: Unremarkable IMPRESSION: 1. There is some tendinosis signal and thickening evident in the 1st extensor compartment tendons con sistent with mild de Quervain's. 2. There is mild tendinosis of the extensor or carpi ulnaris tendon. No high-grade tear. 3. Small effusion within the radiocarpal and distal radioulnar joints. Some degenerative signal at th e ulnar attachment of the triangle fibrocartilage but no high-grade tear of the TFCC evident. DATA REPOSITORY:
--- NOTE | 2023-09-01 18:38 | DI.VRAD_ITS ---
PROCEDURE INFORMATION: Exam: MR Left Upper Extremity Joint Without Contrast; Wrist Exam date and time: 09/01/2023 2:26 PM Age: 47 years old Clinical indication: Patient HX: Left wrist pain TECHNIQUE: Imaging protocol: Magnetic resonance imaging of the left upper extremity without contrast. Exam focused on the wrist. COMPARISON: No relevant prior studies available. FINDINGS: Bones/joints: No marrow edema to suggest an acute fracture, contusion or stress reaction. No osteonecrosis/AVN. Mild osteoarthritic changes within the CMC joint. Tiny joint effusions within radiocarpal and distal radioulnar joints. No focal fluid collection hematoma within the overlying soft tissues. Scapholunate ligament: The scapholunate ligament complex is normal in appearance. Lunotriquetral ligament: The lunotriquetral ligament complex is normal in appearance. Triangular fibrocartilage complex: The ulnar attachments of the triangular fibrocartilage complex are mildly degenerated. No evidence for a full-thickness tear or fenestration within the triangular fibrocartilage. Flexor compartment tendons: No acute tear, tendinosis or tenosynovitis. Extensor compartment tendons: Mild tendinosis and minimal tenosynovitis within the 1st dorsal compartment. Mild extensor carpi ulnaris tendinosis with a low-grade longitudinal split tear seen at the level of the ulnar styloid. The extensor tendons are otherwise normal in appearance. Soft tissues: The muscles normal in appearance without myositis or muscular tearing. IMPRESSION: 1. Mild tendinosis and minimal tenosynovitis within the 1st dorsal compartment which can be seen with de Quervain's tenosynovitis in the correct clinical context. 2. Mild extensor carpi ulnaris tendinosis with a low-grade longitudinal split tear at the ulnar styloid. 3. Mild osteoarthritic changes within the thumb CMC joint. 4. Tiny joint effusions within the radiocarpal and distal radioulnar joints. Dictated and Authenticated by: Evelin Conn MD. Ordering:TOM Cervantes MD
== END ==
PROVIDERS: PCP Family Medicine; Visit Provider Family Medicine
DX: M25.532 Pain in left wrist (principal); M25.432 Effusion, left wrist
CPT/HCPCS: 73221

== ENCOUNTER 2023-09-20 01:26 | Outpatient (CLI) | payer BC, SELFPAY ==
--- NOTE | 2023-09-20 11:40 | DI.MRI_ITS ---
Exam(s) MR CERVICAL SPINE WO EXAM: MR CERVICAL SPINE WO CLINICAL HISTORY: M54.12 Radiculopathy cervical region TECHNIQUE: Multiplanar multisequence MRI of the cervical spine was performed without intravenous con trast. COMPARISON: No exams were available for comparison FINDINGS: BONES: Vertebral body heights are maintained. Intervertebral disc spaces are normal. Alignment is nor mal. Bone marrow signal intensity is within normal limits. CERVICAL CORD: Craniovertebral junction is unremarkable. The cervical cord is normal size and signal intensity. SOFT TISSUES: Unremarkable. C2-3: No disc herniation or bulge is identified. No significant central spinal canal or neural forami nal stenosis. C3-4: No disc herniation or bulge is identified. No significant central spinal canal or neural forami nal stenosis C4-5: No disc herniation or bulge is identified. No significant central spinal canal or neural forami nal stenosis C5-6: There is a mild diffuse disc bulge at C5-C6. No significant central spinal canal stenosis is p resent. There is mild narrowing of the left neural foramen. There is also mild right neural foramin al narrowing. C6-7: No disc herniation or bulge is identified. No significant central spinal canal or neural forami nal stenosis C7-T1: No disc herniation or bulge is identified. No significant central spinal canal or neural cody inal stenosis IMPRESSION: Diffuse disc bulge at C5-6 resulting in bilateral mild neural foraminal stenosis. No significant sam tral spinal canal stenosis. DATA REPOSITORY:
== END 2023-09-20 01:46 ==
PROVIDERS: PCP Family Medicine; Visit Provider Family Medicine
DX: M54.12 Radiculopathy, cervical region (principal)
CPT/HCPCS: 72141

== ENCOUNTER 2023-10-04 16:08 | Outpatient (REF) | payer BC, SELFPAY ==
[2023-10-04 15:36] LABS: Iron 141 ug/dL (50-170); Total Iron Binding Capacity 526 ug/dL (250-450); Transferrin Sat 27 % (15-50)
[2023-10-04 15:52] LABS: ALT 46 U/L (14-59); AST 25 U/L (15-37); Albumin 3.7 g/dL (3.4-5.0); Alkaline Phosphatase 43 U/L (46-116); Anion Gap 10.5 mmol/L (3-11); BUN 11 mg/dL (7-18); Bilirubin, Total 0.31 mg/dL (0.2-1.0); CO2 23.5 mmol/L (21.0-32.0); CREATININE 0.5 mg/dL (0.55-1.02); Calcium 8.8 mg/dL (8.5-10.1); Calculated LDL 182 mg/dL (<100); Chloride 103 mmol/L (98-107); Cholesterol 273 mg/dL (<200); Ferritin 18 ng/mL (8-252); Glucose 98 mg/dL (74-106); HDL Cholesterol 64 mg/dL (40-60); Potassium 4.3 mmol/L (3.5-5.1); Sodium 137 mmol/L (136-145); Total Protein 7.5 g/dL (6.4-8.2); Triglyceride 136 mg/dL (<150)
[2023-10-04 15:55] LABS: Hemoglobin A1C 5.6 % (<5.7)
== END 2023-10-04 16:09 | disposition home or self-care (01) ==
LOC: NCHCN 16:08
PROVIDERS: PCP Family Medicine; Visit Provider Physical Medicine & Rehabilitation
DX: R10.11 Right upper quadrant pain (principal); E78.5 Hyperlipidemia, unspecified; R73.03 Prediabetes; D50.9 Iron deficiency anemia, unspecified
CPT/HCPCS: 80053; 80061; 82728; 83036; 83540; 83550

== ENCOUNTER 2023-10-05 10:29 | Outpatient (CLI) | payer BC, SELFPAY ==
[2023-10-05 08:36] LABS: FREE T4 0.98 ng/dL (0.76-1.46); TSH 1.14 uIU/Ml (0.36-3.74)
[2023-10-05 23:05] LABS: T3,Free 4.3 pg/mL (2.8-5.3)
[2023-10-06 00:11] LABS: Thyroglobulin Antibody 17 U/mL (<=60); Thyroperoxidase Antibody <28 U/mL (<=60)
[2023-10-06 10:25] LABS: EBNA IgG Positive (Negative); EBV Interpretation (See Note); VCA IgG Positive (Negative); VCA IgM Negative (Negative)
[2023-10-07 12:15] LABS: EBV EA IgG Negative (Negative)
[2023-10-09 18:44] LABS: EBV DNA Detect/Quant, P Undetected IU/mL (Undetected)
== END 2023-10-05 10:30 | disposition home or self-care (01) ==
LOC: LBO 10:32
PROVIDERS: PCP Family Medicine; Visit Provider Naturopath
DX: R53.83 Other fatigue (principal); E63.9 Nutritional deficiency, unspecified; K29.70 Gastritis, unspecified, without bleeding; M65.841 Other synovitis and tenosynovitis, right hand; M65.842 Other synovitis and tenosynovitis, left hand; H93.13 Tinnitus, bilateral; R59.0 Localized enlarged lymph nodes; F51.01 Primary insomnia; F90.9 Attention-deficit hyperactivity disorder, unspecified type; M19.031 Primary osteoarthritis, right wrist; J30.89 Other allergic rhinitis; Z13.220 Encounter for screening for lipoid disorders; R14.0 Abdominal distension (gaseous); E66.3 Overweight; M62.838 Other muscle spasm
CPT/HCPCS: 36415; 86376; 86663; 86900; 86901; 87799; 84439; 84443; 84481; 86664; 86665; 87798

== ENCOUNTER 2023-10-05 19:41 | Outpatient (REF) | payer BC, SELFPAY ==
[2023-10-10 13:29] LABS: Helicobacter pylori Ag, Feces Negative (Negative)
== END 2023-10-05 19:42 | disposition home or self-care (01) ==
LOC: LBN 19:41
PROVIDERS: PCP Family Medicine; Visit Provider Naturopath
DX: K29.70 Gastritis, unspecified, without bleeding (principal); R14.0 Abdominal distension (gaseous); R53.83 Other fatigue; E63.8 Other specified nutritional deficiencies
CPT/HCPCS: 87338

== ENCOUNTER 2023-10-25 12:26 | Outpatient (CLI) | payer BC, SELFPAY ==
[2023-10-25 09:48] LABS: Abs Immature Grans 0.03 10^3/uL (0.0-0.06); Absolute Basophil Count 0.07 10^3/uL (0.0-0.2); Absolute Eosinophil Count 0.04 10^3/uL (0.0-0.7); Absolute Lymphocyte Count 2.37 10^3/uL (1.2-3.4); Absolute Monocyte Count 0.48 10^3/uL (0.1-0.8); Absolute Neutrophil Count 5.94 10^3/uL (1.2-6.7); Basophils % 0.8 %; Eosinophils % 0.4 %; HCT 36.2 % (36.0-46.0); HGB 11.6 g/dL (11.2-15.7); Immature Grans % 0.3 %; Lymphocytes % 26.5 %; MCH 28.5 pg (27.0-33.0); MCV 89 fL (80-95); MPV 9.9 fL (8.0-11.0); Monocytes % 5.4 %; Neutrophils % 66.6 %; Platelet Count 259 10^3/uL (130-400); RBC 4.07 10^6/uL (3.93-5.22); RDW 12.5 % (11.7-14.6); RDW-SD 40.8 fL; WBC 8.93 10^3/uL (4.4-10.8)
[2023-10-25 10:25] LABS: ALT 46 U/L (14-59); AST 18 U/L (15-37); Albumin 3.5 g/dL (3.4-5.0); Alkaline Phosphatase 39 U/L (46-116); BUN 11 mg/dL (7-18); Bilirubin, Total 0.19 mg/dL (0.2-1.0); CREATININE 0.6 mg/dL (0.55-1.02); Calcium 9.2 mg/dL (8.5-10.1); Chloride 105 mmol/L (98-107); Estimated GFR 109.96 (mL/min/1.73m2); Glucose 102 mg/dL (74-106); Sodium 138 mmol/L (136-145); Total Protein 7.4 g/dL (6.4-8.2)
== END 2023-10-25 12:27 | disposition home or self-care (01) ==
LOC: LBO 12:28
PROVIDERS: PCP Family Medicine; Visit Provider Nurse Practitioner Family
DX: Z79.899 Other long term (current) drug therapy (principal); M47.819 Spondylosis without myelopathy or radiculopathy, site unspecified
CPT/HCPCS: 36415; 80053; 85025

== ENCOUNTER 2023-12-05 03:12 | Outpatient (CLI) | payer BC, SELFPAY ==
[2023-12-05 11:16] LABS: GTT Comment See Comments
[2023-12-06 09:26] LABS: Insulin 7.9 uIU/mL (<29.0)
[2023-12-07 15:20] LABS: HLA-B27 Result Negative
== END 2023-12-05 03:13 | disposition home or self-care (01) ==
LOC: LBO 03:13
PROVIDERS: PCP Family Medicine; Visit Provider Naturopath
DX: R53.83 Other fatigue (principal); M65.841 Other synovitis and tenosynovitis, right hand; M62.838 Other muscle spasm; M65.842 Other synovitis and tenosynovitis, left hand; M19.031 Primary osteoarthritis, right wrist; Z13.1 Encounter for screening for diabetes mellitus
CPT/HCPCS: 36415; 80053; 86812; 82951; 83525; 85025

== ENCOUNTER 2023-12-08 02:54 | Outpatient (CLI) | payer BC, SELFPAY ==
[2023-12-08 16:49] LABS: Creatine Kinase 65 U/L (26-192); PHOSPHORUS 4.3 mg/dL (2.6-4.7)
[2023-12-10 12:03] LABS: Aldolase 3.6 U/L (<7.7)
[2023-12-11 13:07] LABS: RNP Ab, IgG <6.0 CU (<20.0); Sm (Smith) Ab, IgG <8.0 CU (<20.0); dsDNA Ab, IgG <22.0 IU/mL (<27.0)
[2023-12-11 13:23] LABS: ANA Interpretation Negative (Negative)
[2023-12-11 14:26] LABS: Albumin 61.8 % (55.8-66.1); Albumin g/dL 4.5 g/dL (3.6-5.2); Total Protein 7.3 g/dL (6.3-8.2)
[2023-12-11 15:36] LABS: Centromere Ab, IgG <0.2 U (<1.0 (Neg)); Scl 70 Antibodies, IgG <0.2 U
== END 2023-12-08 02:55 | disposition home or self-care (01) ==
PROVIDERS: PCP Family Medicine; Visit Provider Family Medicine
DX: G62.9 Polyneuropathy, unspecified (principal); M62.81 Muscle weakness (generalized); M79.10 Myalgia, unspecified site; R21 Rash and other nonspecific skin eruption
CPT/HCPCS: 36415; 82550; 82085; 83520; 83735; 84100; 84165; 86038; 86225; 86235

== ENCOUNTER 2023-12-19 11:47 | Outpatient (CLI) | payer BC, SELFPAY ==
--- NOTE | 2023-12-19 08:30 | DI.RAD_ITS ---
Exam(s) XR FOOT LT COMPLETE XR FOOT RT COMPLETE EXAM: XR FOOT LT COMPLETE CLINICAL HISTORY: Left foot pain, M79.672. TECHNIQUE: 2D digital imaging was performed. Three views of both feet. COMPARISON: CR XR FOOT RT COMPLETE from 12/19/2023 FINDINGS: BONES: No acute fracture is present. No bony destructive lesion is seen. JOINTS: No dislocation present. No significant degenerative changes. The plantar arch is maintaine d. SOFT TISSUE: Normal. IMPRESSION: Unremarkable radiographs of the bilateral feet. DATA REPOSITORY: RADIATION DOSE DELIVERED:
== END 2023-12-19 12:07 ==
LOC: DI 11:47
PROVIDERS: PCP Family Medicine; Visit Provider Podiatrist
DX: M79.671 Pain in right foot (principal); M79.672 Pain in left foot
CPT/HCPCS: 73630

== ENCOUNTER 2023-12-29 01:43 | Outpatient (CLI) | payer BC, SELFPAY ==
--- NOTE | 2023-12-29 13:57 | DI.RAD_ITS ---
Exam(s) XR HAND RT COMPLETE XR HAND LT COMPLETE EXAM: XR HAND LT COMPLETE CLINICAL HISTORY: PAIN IN FINGER, M79.646. TECHNIQUE: 2D digital imaging was performed. Three views of both hands. COMPARISON: CR XR HAND RT COMPLETE from 12/29/2023 FINDINGS: BONES: No acute fracture is present. No bony destructive lesion is seen. JOINTS: No dislocation present. Minimal narrowing and periarticular spurring at the interphalangeal joints of the fingers, symmetric bilateral SOFT TISSUE: Normal. IMPRESSION: Minimal degenerative changes of the interphalangeal joints of both hands. DATA REPOSITORY: RADIATION DOSE DELIVERED:
== END 2023-12-29 02:03 ==
LOC: DI 01:43
PROVIDERS: PCP Family Medicine; Visit Provider Family Medicine
DX: M19.041 Primary osteoarthritis, right hand (principal); M19.042 Primary osteoarthritis, left hand
CPT/HCPCS: 73130

== ENCOUNTER 2024-01-08 11:21 | Outpatient (REF) | payer BC, SELFPAY ==
--- NOTE | 2024-01-08 11:00 | PAPFT_PTH ---
PATIENT: Jamia Newell LOC: [facility] U#:[id number] AGE/SX: 48/F ROOM: RE01/08/[address]: Aurora Alston : 1975 BED: DIS: 01/08/2024 SPEC #: [id number] RECD: 01/08/24 13:20 STATUS: SEVEN RELynda #: [id number] LUBA: 01/08/24 11:[address]: Aurora Altson DEPT: [facility] Cytology RECD BY: Iza Rojas ENTERED: 01/08/24 13:21 SP TYPE: PAPFT OTHR DR: Helen Manzanares Tissues: 1 - CX/ENDOCX FOR PAP SMEARS Procedures: PAP THIN PREP/[facility] Screening HPV DNA PROBE Comments: (HPV 16 & 18/45)
== END 2024-01-08 11:22 | disposition home or self-care (01) ==
LOC: LBN 11:21
PROVIDERS: PCP Family Medicine; Visit Provider Obstetrics & Gynecology Gynecology
DX: Z12.39 Encounter for other screening for malignant neoplasm of breast (principal); Z01.419 Encounter for gynecological examination (general) (routine) without abnormal findings
CPT/HCPCS: 88142; 87624

== ENCOUNTER 2024-01-17 03:18 | Outpatient (CLI) | payer BC, SELFPAY ==
--- NOTE | 2024-01-17 13:18 | W.NUTRFU ---
Date of service: 01/17/24 Time of Service: 12:00 Nutrition Note NOTE: Amaris arrived for referred nutrition visit regarding prediabetes/diabetes prevention. Also states she was told she has milk fatty liver and concerned about her cholesterol as well. Pt is 57 at 73.2kg with a corresponding BM of 33.6 She does share current alcohol consumption of 2 drinks nightly with to unwind - but sometimes may have 4 or more drinks to cut loose. Takes D3 with k, magnesium and b complex at home - I suggested looking into milk thistle supplement and update provider if she does take routinely. Has lost weight on keto diet historically but could not sustain the restricted eating pattern. I introduced recommendations to start addressing her concerns. Suggested 1500kcal diet with 150g total carbs (no more than 25g added sugar most days and at least 25g fiber most days as part of this total). we discussed aiming for 90g protein with a good amount coming from plant sources like legumes, nuts/seeds, oats and even 25g from why protein powder if struggling. We reviewed 1oz meat =7g protein and aim for lean choices. Really highlighted added sugar, fiber and protein goals as rodriguez along with some exercise. We looked at meal patterns best suited to support her goals with first meal coming early as possible with min of 30g protein. encouraged 2L water per day as well. Jamia took my card to contact if she has any questions, need for follow up or would like any additional education/reference materials. Time Spent in Nutritional Counseling and Treatment: 25 minutes
== END 2024-01-17 03:19 | disposition home or self-care (01) ==
LOC: DS 03:18
PROVIDERS: PCP Family Medicine; Visit Provider Dietitian, Registered
DX: R73.03 Prediabetes (principal)
CPT/HCPCS: 00123; 97802

== ENCOUNTER 2024-01-23 01:41 | Outpatient (CLI) | payer BC, SELFPAY ==
--- NOTE | 2024-01-23 08:50 | DI.RAD_ITS ---
Exam(s) XR KNEE RT 3V AP,LAT,HOLLY EXAM: XR KNEE RT 3V AP,LAT,HOLLY CLINICAL HISTORY: RT KNEE PAIN,M25.561. TECHNIQUE: 2D digital imaging was performed of the right knee. Three views obtained. AP, lateral an d PA tunnel views were obtained. COMPARISON: CR XR HIP RT AP LAT ONLY from 09/15/2021 FINDINGS: BONES: No acute fracture is present. No bony destructive lesion is seen. JOINTS: The knee is normally aligned. No joint effusion is seen. SOFT TISSUE: Normal. IMPRESSION: Unremarkable radiographs of the right knee. DATA REPOSITORY: RADIATION DOSE DELIVERED:
--- NOTE | 2024-01-23 08:50 | DI.RAD_ITS ---
Exam(s) XR KNEE LT 3V AP,LAT,HOLLY EXAM: XR KNEE LT 3V AP,LAT,HOLLY CLINICAL HISTORY: LT KNEE PAIN, M25.562. TECHNIQUE: 2D digital imaging was performed of the left knee. Three images were obtained. AP, late ral and PA tunnel views were obtained. COMPARISON: There are no priors for comparison. FINDINGS: BONES: No acute fracture is present. No bony destructive lesion is seen. JOINTS: The knee is normally aligned. No joint effusion is seen. No loose body. SOFT TISSUE: Normal. IMPRESSION: Normal radiographs of the left knee. DATA REPOSITORY: RADIATION DOSE DELIVERED:
== END 2024-01-23 02:01 ==
LOC: DI 01:42
PROVIDERS: PCP Family Medicine; Visit Provider Family Medicine
DX: M25.562 Pain in left knee (principal); M25.561 Pain in right knee
CPT/HCPCS: 73562

== ENCOUNTER 2024-01-23 01:41 | Outpatient (CLI) | payer BC, SELFPAY ==
--- NOTE | 2024-01-23 11:58 | DI.MAMMO_ITS ---
Exam(s) MAMMO SCREENING EXAM: MAMMO SCREENING CLINICAL HISTORY: screening TECHNIQUE: Bilateral full field digital CC and MLO mammographic images were obtained with 3D tomosyn thesis and utilizing computer aided detection (CAD). COMPARISON: Available for comparison. FINDINGS: Masses/Architectural Distortion: There has been interval increase in size of 2 nodules in the upper o uter quadrant of the right breast. No areas of architectural distortion are seen. Microcalcifications: No suspicious pleomorphic-type are seen. Skin Thickening/Nipple Retraction: None. IMPRESSION: 1. Interval increase in size of 2 nodules in the upper outer quadrant of the right breast. 2. These area should be further evaluated with spot compression views. Ultrasound may be indicated a t that time. BI-RADS Category 0 - Incomplete: Need additional imaging evaluation Breast Density - Category B - Scattered areas of fibroglandular density Breast density category C or D implies that the patient has dense breast tissue. Dense breast tissue is very common and is not abnormal but dense breast tissue can make it harder to find cancer on a ma mmogram. Also, dense breast tissue may increase their breast cancer risk. This information about the result of the mammogram report was provided to the patient to raise their awareness. Use this report when you speak with the patient about their risks for breast cancer, which includes their family hist ory. At that time, you may recommend for more screening tests (Ultrasound or MRI) as they might be us eful based on their risk. A negative radiographic report should not delay biopsy if a dominant or clinically suspicious mass is present. Up to ten percent of cancers are not identified on mammography. A negative report may reinforce clinical impression. Adenosis and dense breasts may obscure an underlying neoplasm. False positive reports average 6 to 10%. Patient will receive a letter notifying them of these results.
== END 2024-01-23 02:01 ==
LOC: DI 01:41
PROVIDERS: PCP Family Medicine; Visit Provider Obstetrics & Gynecology Gynecology
DX: Z12.31 Encounter for screening mammogram for malignant neoplasm of breast (principal); R92.323 Mammographic fibroglandular density, bilateral breasts
CPT/HCPCS: 77063; 77067

== ENCOUNTER 2024-01-23 03:00 | Outpatient (CLI) | payer BC, SELFPAY ==
[2024-01-23 09:03] LABS: Abs Immature Grans 0.01 10^3/uL (0.0-0.06); Absolute Basophil Count 0.07 10^3/uL (0.0-0.2); Absolute Eosinophil Count 0.04 10^3/uL (0.0-0.7); Absolute Lymphocyte Count 2.41 10^3/uL (1.2-3.4); Absolute Monocyte Count 0.52 10^3/uL (0.1-0.8); Absolute Neutrophil Count 3.93 10^3/uL (1.2-6.7); Eosinophils % 0.6 %; HCT 37.4 % (36.0-46.0); HGB 12.2 g/dL (11.2-15.7); Immature Grans % 0.1 %; Lymphocytes % 34.5 %; MCH 29.2 pg (27.0-33.0); MCHC 32.6 % (32.0-36.0); MCV 90 fL (80-95); MPV 9.9 fL (8.0-11.0); Monocytes % 7.4 %; Neutrophils % 56.4 %; Platelet Count 275 10^3/uL (130-400); RBC 4.18 10^6/uL (3.93-5.22); RDW 12.9 % (11.7-14.6); RDW-SD 42.8 fL; WBC 6.98 10^3/uL (4.4-10.8)
[2024-01-23 09:36] LABS: ALT 30 U/L (14-59); AST 17 U/L (15-37); Albumin 3.8 g/dL (3.4-5.0); Alkaline Phosphatase 46 U/L (46-116); Anion Gap 8.4 mmol/L (3-11); BUN 11 mg/dL (7-18); Bilirubin, Total 0.37 mg/dL (0.2-1.0); CO2 25.6 mmol/L (21.0-32.0); CREATININE 0.6 mg/dL (0.55-1.02); Calcium 8.7 mg/dL (8.5-10.1); Chloride 105 mmol/L (98-107); Estimated GFR 109.96 (mL/min/1.73m2); Glucose 103 mg/dL (74-106); Potassium 4.2 mmol/L (3.5-5.1); Sodium 139 mmol/L (136-145); Total Protein 7.6 g/dL (6.4-8.2)
[2024-01-25 12:50] LABS: Aspergillus Fumigatus IgE <0.10 kU/L (<0.70); Cladosporium IgE <0.10 kU/L (<0.70); Penicillium chrysogenum IgE <0.10 kU/L (<0.70)
[2024-02-01 16:11] LABS: Misc Referral (MAYO) See Comments
== END 2024-01-23 03:01 | disposition home or self-care (01) ==
LOC: LBO 03:00
PROVIDERS: Nurse Practitioner Family; PCP Family Medicine; Visit Provider Naturopath
DX: Z79.899 Other long term (current) drug therapy (principal); M47.819 Spondylosis without myelopathy or radiculopathy, site unspecified; R59.0 Localized enlarged lymph nodes; R53.83 Other fatigue; Q79.69 Other Ehlers-Danlos syndromes; J30.89 Other allergic rhinitis; Z77.120 Contact with and (suspected) exposure to mold (toxic)
CPT/HCPCS: 36415; 80053; 86003; 85025

== ENCOUNTER 2024-02-02 00:47 | Outpatient (CLI) | payer BC, SELFPAY ==
--- NOTE | 2024-02-02 09:00 | DI.MAMMO_ITS ---
Exam(s) MG MAMMO SCREEN CALL BACK UNI US BREAST RT LIMITED EXAM: MG MAMMO SCREEN CALL BACK UNI CLINICAL HISTORY: increase in size of R breast nodules, N63.0. TECHNIQUE: Craniocaudal and mediolateral oblique spot compression digital Mammography views of the r ightbreast with Tomosynthesis and right breast ultrasound. COMPARISON: US US BREAST RT LIMITED from 02/02/2024 FINDINGS: Mammography/Tomosynthesis: Masses: Intramammary lymph nodes noted in the upper outer quadrant. No suspicious masses are seen. Architectural Distortion: None seen. Microcalcifictions: No suspicious pleomorphic-type are seen. Skin Thickening/Nipple Retraction: None. Right breast US: Echotexture: Normal appearance of the glandular tissue. Shadowing: No suspicious foci. Cyst: None. Solid lesions: No suspicious mass. Normal appearing lymph nodes are noted in the upper outer quadran t. A 10 millimeter lymph node 10 o'clock position 7 cm from the nipple. 6 millimeter lymph node 11 o'clock position 10 cm from the nipple. Ductal dilation: None. IMPRESSION: 1. No evidence of malignancy is noted. 2. Unless there is more urgent need, follow-up screening mammography is recommended, as per [place] [employer] guidelines. 3. The findings were discussed with the patient on the date of the examination. BI-RADS Category 1 - Negative Breast Density - Category B - Scattered areas of fibroglandular density A negative radiographic report should not delay biopsy if a dominant or clinically suspicious mass is present. Up to ten percent of cancers are not identified on mammography. A negative report may reinforce clinical impression. Adenosis and dense breasts may obscure an underlying neoplasm. False positive reports average 6 to 10%. Patient will receive a letter notifying them of these results.
== END 2024-02-02 01:07 ==
LOC: DI 00:47
PROVIDERS: PCP Family Medicine; Visit Provider Obstetrics & Gynecology Gynecology
DX: N63.10 Unspecified lump in the right breast, unspecified quadrant (principal); Z12.31 Encounter for screening mammogram for malignant neoplasm of breast; R92.323 Mammographic fibroglandular density, bilateral breasts
CPT/HCPCS: 76642; 77063; 77067

== ENCOUNTER 2024-02-27 22:30 | Outpatient (REF) | payer BC, SELFPAY | END 2024-02-27 22:31 | disposition home or self-care (01) | LOC: NCHCN 22:30 | PROVIDERS: PCP Family Medicine; Visit Provider Family Medicine | DX: R35.0 Frequency of micturition (principal); R82.89 Other abnormal findings on cytological and histological examination of urine | CPT/HCPCS: 87086 ==

== ENCOUNTER 2024-06-13 17:42 | Outpatient (REF) | payer BC, SELFPAY ==
[2024-06-13 17:43] LABS: Abs Immature Grans 0.01 10^3/uL (0.0-0.06); Absolute Basophil Count 0.07 10^3/uL (0.0-0.2); Absolute Eosinophil Count 0.06 10^3/uL (0.0-0.7); Absolute Lymphocyte Count 2.73 10^3/uL (1.2-3.4); Absolute Monocyte Count 0.55 10^3/uL (0.1-0.8); Absolute Neutrophil Count 3.55 10^3/uL (1.2-6.7); Eosinophils % 0.9 %; HCT 37.2 % (36.0-46.0); HGB 12.3 g/dL (11.2-15.7); Immature Grans % 0.1 %; Lymphocytes % 39.2 %; MCH 29.1 pg (27.0-33.0); MCHC 33.1 % (32.0-36.0); MCV 88 fL (80-95); MPV 10.4 fL (8.0-11.0); Monocytes % 7.9 %; Neutrophils % 50.9 %; Platelet Count 334 10^3/uL (130-400); RBC 4.22 10^6/uL (3.93-5.22); RDW 12.5 % (11.7-14.6); RDW-SD 40.2 fL; WBC 6.97 10^3/uL (4.4-10.8)
[2024-06-13 17:51] LABS: Iron 99 ug/dL (50-170); Total Iron Binding Capacity 480 ug/dL (250-450); Transferrin Sat 21 % (15-50)
[2024-06-13 18:00] LABS: Hemoglobin A1C 5.5 % (<5.7)
[2024-06-13 18:15] LABS: Ferritin 19 ng/mL (8-252); TSH (W/Ref FT4) 0.59 uIU/mL (0.36-3.74); Vitamin D 25 Total 60 ng/mL (30-100)
[2024-06-13 18:33] LABS: C-Reactive Protein < 0.50 mg/dL (<or=0.5)
[2024-06-18 13:15] LABS: SS-A/Ro, IgG <2.3 CU (<20.0); SS-B (La) Ab, IgG <3.3 CU (<20.0)
== END 2024-06-13 17:43 | disposition home or self-care (01) ==
LOC: NCHCN 17:42
PROVIDERS: PCP Family Medicine; Visit Provider Family Medicine
DX: H04.123 Dry eye syndrome of bilateral lacrimal glands (principal); E78.00 Pure hypercholesterolemia, unspecified; R53.83 Other fatigue
CPT/HCPCS: 82306; 82728; 83036; 83540; 83550; 84443; 85025; 86140; 86235

== ENCOUNTER 2024-06-26 02:05 | Outpatient (CLI) | payer BC, SELFPAY ==
--- NOTE | 2024-06-26 09:04 | DI.RAD_ITS ---
Exam(s) XR HAND LT COMPLETE EXAM: XR HAND LT COMPLETE CLINICAL HISTORY: M79.645 Pain left fingers. TECHNIQUE: 2D digital imaging was performed. Three views. COMPARISON: CR XR HAND LT COMPLETE from 12/29/2023 CR XR HAND RT COMPLETE from 06/26/2024 FINDINGS: BONES: No acute fracture is present. No bony destructive lesion is seen. JOINTS: No dislocation present. There is minimal periarticular spurring at the interphalangeal joints of the fingers. No significant degenerative changes elsewhere. SOFT TISSUE: Circumscribed bony density adjacent to the distal pole of the navicular. Small soft tis alfredito calcification in the loop at the ulnar aspect of the distal interphalangeal joint of the index fi nger. IMPRESSION: Minimal degenerative changes of the interphalangeal joints. DATA REPOSITORY: RADIATION DOSE DELIVERED:
--- NOTE | 2024-06-26 09:04 | DI.RAD_ITS ---
Exam(s) XR SHOULDER LT COMPLETE 2+V EXAM: XR SHOULDER LT COMPLETE 2+V CLINICAL HISTORY: LT SHOULDER PAIN, M25.512. TECHNIQUE: 2D digital imaging was performed. Three views. COMPARISON: CR XR SHOULDER RT COMPLETE 2+V from 06/26/2024 FINDINGS: BONES: No acute fracture is present. No bony destructive lesion is seen. JOINTS: No dislocation present. The glenohumeral joint space is maintained. There are no significan t degenerative changes of the AC joint. SOFT TISSUE: There are 2 calcifications adjacent to the greater tuberosity consistent with calcific t endinosis. IMPRESSION: Calcific tendinosis. DATA REPOSITORY: RADIATION DOSE DELIVERED:
--- NOTE | 2024-06-26 09:04 | DI.RAD_ITS ---
Exam(s) XR HAND RT COMPLETE EXAM: XR HAND RT COMPLETE CLINICAL HISTORY: RT HAND PAIN,M79.641. TECHNIQUE: 2D digital imaging was performed. Three views. COMPARISON: CR XR HAND LT COMPLETE from 06/26/2024 FINDINGS: BONES: No acute fracture is present. No bony destructive lesion is seen. Bone island in scaphoid. JOINTS: No dislocation present. Minimal periarticular spurring at the interphalangeal joints of the fingers. SOFT TISSUE: Normal. IMPRESSION: Minimal degenerative changes of the interphalangeal joints. DATA REPOSITORY: RADIATION DOSE DELIVERED:
--- NOTE | 2024-06-26 09:04 | DI.RAD_ITS ---
Exam(s) XR SHOULDER RT COMPLETE 2+V EXAM: XR SHOULDER RT COMPLETE 2+V CLINICAL HISTORY: RT SHOULDER PAIN,M25.511. TECHNIQUE: 2D digital imaging was performed of the right shoulder. Five images were obtained. AP, Grashey, Y-view and axillary views were obtained. COMPARISON: CR XR SHOULDER RT COMPLETE 2+V from 05/04/2021 CR XR RIBS BI INCLUDE CHEST from 08/29/2023 FINDINGS: BONES: No acute fracture is present. No bony destructive lesion is seen. JOINTS: No dislocation present. The glenohumeral joint is well maintained. There are mild degenerati ve changes seen at the acromioclavicular joint. SOFT TISSUE: Soft tissue calcification is seen adjacent to the greater tuberosity suggesting calcific tendinitis. IMPRESSION: Findings suggestive of calcific tendinitis. DATA REPOSITORY: RADIATION DOSE DELIVERED:
== END 2024-06-26 02:25 ==
LOC: DI 02:05
PROVIDERS: PCP Family Medicine; Visit Provider Family Medicine
DX: M25.512 Pain in left shoulder (principal); M75.31 Calcific tendinitis of right shoulder; M79.645 Pain in left finger(s)
CPT/HCPCS: 73030; 73130

== ENCOUNTER 2024-07-23 03:37 | Outpatient (CLI) | payer BC, SELFPAY ==
[2024-07-24 10:57] LABS: IgA 150 mg/dL (85-499); Interpretation (See Note); Tissue Transglutaminase IgA <4.0 CU (<20.0)
== END 2024-07-23 03:38 | disposition home or self-care (01) ==
LOC: LBO 03:37
PROVIDERS: PCP Family Medicine; Visit Provider Family Medicine
DX: R10.13 Epigastric pain (principal)
CPT/HCPCS: 36415; 82784; 83516

== ENCOUNTER 2024-08-07 04:29 | Outpatient (CLI) | payer BC, SELFPAY ==
[2024-08-07 13:34] LABS: TSH 0.82 uIU/mL (0.36-3.74)
[2024-08-07 22:38] LABS: T3, Total 118 ng/dL (97-169)
== END 2024-08-07 04:30 | disposition home or self-care (01) ==
PROVIDERS: PCP Family Medicine; Visit Provider Family Medicine
DX: L65.9 Nonscarring hair loss, unspecified (principal)
CPT/HCPCS: 36415; 85652; 84439; 84443; 84480; 86140; 86376

== ENCOUNTER 2024-09-11 | Outpatient (REF) | payer BC, SELFPAY | END 2024-09-11 00:01 | disposition home or self-care (01) | LOC: LBN | PROVIDERS: PCP Family Medicine; Visit Provider Obstetrics & Gynecology | DX: N85.8 Other specified noninflammatory disorders of uterus (principal) | CPT/HCPCS: 88305 ==

== ENCOUNTER 2024-09-11 17:40 | Outpatient (REF) | payer BC, SELFPAY ==
[2024-09-11 20:52] LABS: TSH 0.74 uIU/mL (0.36-3.74)
== END 2024-09-11 17:41 | disposition home or self-care (01) ==
LOC: NCHCN 17:40
PROVIDERS: PCP Family Medicine; Visit Provider Family Medicine
DX: L65.9 Nonscarring hair loss, unspecified (principal)
CPT/HCPCS: 84439; 84443

== ENCOUNTER 2024-09-16 01:57 | Outpatient (CLI) | payer BC, SELFPAY ==
--- NOTE | 2024-09-16 | DI.MRI_ITS ---
Exam(s) MR UPPER JOINT LT WO EXAM: MR UPPER JOINT LT WO CLINICAL HISTORY: Lt elbow pain, M25.522. TECHNIQUE: Multiplanar multisequence MRI was performed. COMPARISON: None. FINDINGS: Elbow joint: No joint effusion. No loose bodies. Bones: There is no fracture or contusion pattern. Biceps tendon: Intact. No tendinosis. Brachialis tendon: Intact. No tendinosis. Common flexor tendons: Intact. No tendinosis. Common extensor tendons: Intact. No tendinosis. Triceps tendon: Intact. No tendinosis. Soft tissues: There is minimal edema in the soft tissues adjacent to the medial epicondyle but no visible final tendon abnormality. IMPRESSION: Mild soft tissue edema in the medial soft tissues adjacent to the medial epicondyle. On no bone or tendon abnormalities identified. DATA REPOSITORY:
== END 2024-09-16 02:17 ==
LOC: DI 01:57
PROVIDERS: PCP Family Medicine; Visit Provider Family Medicine
DX: M25.522 Pain in left elbow (principal)
CPT/HCPCS: 73221

== ENCOUNTER 2024-09-18 01:26 | Outpatient (CLI) | payer BC, SELFPAY ==
--- NOTE | 2024-09-18 | DI.MRI_ITS ---
Exam(s) MR UPPER JOINT LT WO EXAM: MR UPPER JOINT LT WO CLINICAL HISTORY: Chronic lt shoulder pain,M25.512,G89.29; calcific tendinitis of lt shoulder. TECHNIQUE: Multiplanar multisequence MRI was performed. COMPARISON: CR XR SHOULDER LT COMPLETE 2+V from 06/26/2024 FINDINGS: BONES: There is no fracture or contusion pattern. There is a small subchondral cyst in the greater tuberosity. There is a T1 and T2 low signal focus adjacent to the insertion site of the supraspinatus consistent with calcific tendinitis. JOINTS: There are mild degenerative changes seen at the acromioclavicular joint. There is thinning of the articular cartilage overlying the glenoid. No significant joint effusion is seen. TENDONS: Supraspinatus: Unremarkable. Infraspinatus: Unremarkable. Subscapularis: Unremarkable. Teres Minor: Unremarkable. Biceps and [place]: Unremarkable. MUSCLES: Unremarkable. There is no significant muscular fatty atrophy present. GLENOID LABRUM: Unremarkable on this noncontrast examination. SOFT TISSUES: Unremarkable. LIGAMENTS: Unremarkable. OTHER: There is a small amount of fluid seen in the subdeltoid bursa. IMPRESSION: 1. There is no evidence of a rotator cuff or labral tear on this noncontrast examination. 2. Degenerative changes seen at the glenohumeral and acromioclavicular joints. 3. Findings of calcific tendinitis with a small amount of fluid seen in the subdeltoid bursa. DATA REPOSITORY:
== END 2024-09-18 01:46 ==
LOC: DI 01:27
PROVIDERS: PCP Family Medicine
DX: M19.012 Primary osteoarthritis, left shoulder (principal); M75.22 Bicipital tendinitis, left shoulder
CPT/HCPCS: 73221

== ENCOUNTER 2024-10-04 15:04 | Outpatient (REF) | payer BC, SELFPAY ==
[2024-10-04 15:42] LABS: Abs Immature Grans 0.02 10^3/uL (0.0-0.06); HCT 38.5 % (36.0-46.0); HGB 12.6 g/dL (11.2-15.7); Immature Grans % 0.2 %; MCH 30.1 pg (27.0-33.0); MCHC 32.7 % (32.0-36.0); MCV 92 fL (80-95); MPV 10.4 fL (8.0-11.0); Platelet Count 340 10^3/uL (130-400); RBC 4.19 10^6/uL (3.93-5.22); RDW 12.2 % (11.7-14.6); RDW-SD 41.1 fL; WBC 8.22 10^3/uL (4.4-10.8)
[2024-10-04 15:56] LABS: Iron 65 ug/dL (50-170); Total Iron Binding Capacity 442 ug/dL (250-450); Transferrin Sat 15 % (15-50)
[2024-10-04 16:54] LABS: Ferritin 29 ng/mL (8-252)
== END 2024-10-04 15:05 | disposition home or self-care (01) ==
LOC: NCHCN 15:04
PROVIDERS: PCP Family Medicine; Visit Provider Family Medicine
DX: E61.1 Iron deficiency (principal)
CPT/HCPCS: 82728; 83540; 83550; 85025

== ENCOUNTER 2024-10-30 01:54 | Outpatient (CLI) | payer BC, SELFPAY ==
--- NOTE | 2024-10-30 | DI.MRI_ITS ---
Exam(s) MR UPPER JOINT RT WO EXAM: MR UPPER JOINT RT WO CLINICAL HISTORY: CARPAL TUNNEL RT WRIST G56.01. TECHNIQUE: Multiplanar multisequence MRI was performed. COMPARISON: Comparison MRI is 09/20/2022. Comparison x-ray is 06/26/2024. FINDINGS: The examination is limited due to patient motion artifact. BONES: There is no fracture or contusion pattern. JOINTS: The radiocarpal joint is unremarkable. The carpal joints are unremarkable. TENDONS: Flexors: Unremarkable. Extensors: There is some thickening of the extensor carpi ulnaris tendon near the ulnar styloid process which may represent a tenosynovitis. There is intermediate signal seen within the tendon itself. MUSCLES: Unremarkable. MEDIAN NERVE: Unremarkable on this noncontrast examination. ULNAR NERVE: Unremarkable on this noncontrast examination. SOFT TISSUES: There is a 1.0 x 0.4 cm ganglion associated with the triquetral pisiform joint. LIGAMENTS: Unremarkable. TRIANGULAR FIBROCARTILAGE: Unremarkable. OTHER: IMPRESSION: 1. Unremarkable appearance to the carpal tunnel and its contents. 2. 1.0 x 0.4 cm ganglion associated with the triquetral pisiform joint. 3. Mild thickening and intermediate signal seen within the extensor carpi ulnaris tendon which may represent a tendinitis. DATA REPOSITORY:
== END 2024-10-30 02:14 ==
PROVIDERS: PCP Family Medicine; Visit Provider Student in an Organized Health Care Education/Training Program
DX: G56.01 Carpal tunnel syndrome, right upper limb (principal)
CPT/HCPCS: 73221

== ENCOUNTER 2024-11-08 12:49 | Outpatient (CLI) | payer BC, SELFPAY ==
[2024-11-08 12:55] LABS: HCT 36.4 % (36.0-46.0); HGB 12.3 g/dL (11.2-15.7); MCH 30.4 pg (27.0-33.0); MCHC 33.8 % (32.0-36.0); MCV 90 fL (80-95); MPV 9.8 fL (8.0-11.0); Platelet Count 311 10^3/uL (130-400); RBC 4.05 10^6/uL (3.93-5.22); RDW 11.9 % (11.7-14.6); RDW-SD 38.6 fL; WBC 6.40 10^3/uL (4.4-10.8)
[2024-11-08 13:26] LABS: Iron 61 ug/dL (50-170); Total Iron Binding Capacity 444 ug/dL (250-450); Transferrin Sat 14 % (15-50)
[2024-11-08 13:33] LABS: Ferritin 33 ng/mL (8-252)
== END 2024-11-08 12:50 | disposition home or self-care (01) ==
LOC: LBO 12:50
PROVIDERS: PCP Family Medicine; Visit Provider Obstetrics & Gynecology
DX: N93.9 Abnormal uterine and vaginal bleeding, unspecified (principal); D50.9 Iron deficiency anemia, unspecified; Z3A.28 28 weeks gestation of pregnancy
CPT/HCPCS: 36415; 85027; 82728; 83540; 83550

== ENCOUNTER 2024-11-13 02:00 | Outpatient (CLI) | payer BC, SELFPAY ==
--- NOTE | 2024-11-13 | DI.MRI_ITS ---
Exam(s) MR UPPER JOINT RT WO EXAM: MR UPPER JOINT RT WO CLINICAL HISTORY: IMPINGEMENT SYNDROME RT SHOULDER M75.41 CALCIFIC TENDINITIS M75.31 TECHNIQUE: Multiplanar multisequence MRI of the shoulder was performed. COMPARISON: CR XR HAND RT COMPLETE from 06/26/2024 CR XR SHOULDER RT COMPLETE 2+V from 06/26/2024 CR XR SHOULDER LT COMPLETE 2+V from 06/26/2024 MR MR UPPER JOINT LT WO from 09/18/2024 FINDINGS: MARROW:There is no evidence of fracture, Hill-Sachs deformity, nor ominous osseous lesions. Also acromial is incidentally noted. GLENOHUMERAL JOINT: No joint effusion nor obvious loose intra-articular bodies. No chondral defects. No osteophytes. No degenerative subarticular cysts. ROTATOR CUFF MECHANISM: AC JOINT/ACROMIUM: Minimal if any significant degenerative changes in the AC joint. Tiny amount of fluid noted in the joint space. No downgoing osteophytes.. As described above, there is an os acromiale. Supraspinatus: There is a chunk of hypointense calcium intimately associated with the anterior aspect of the supraspinatus tendon, this measuring 8 x 5 mm. This is consistent with calcific tendinitis. On the sagittal fat-sat images there is a thin focus of signal abnormality which traverses the entire tendon and there does appear to be small amount of fluid in the overlying subacromial- subdeltoid bursa. This may be a full small full-thickness tear. There is no muscle atrophy. Infraspinatus: There are 2 small calcific densities intimately associated with the outer aspect of the infraspinatus insertional tendon. There does not appear to be a tear in the infraspinatus tendon. No muscle atrophy. Teres Minor: Intact. No evidence of tear nor muscle atrophy. Subscapularis/anterior cuff: Mild increased tendon signal anterior to the lesser tuberosity consistent with mild tendinitis; but no high-grade tear. BICEPS TENDON: Exhibits normal position within the intertubercular groove. No evidence of tear. LABRUM: No abnormal signal in the superior labrum posterior to the biceps insertion site. Posterior labrum is intact. Anterior labrum is intact. Inferior labrum is intact. Inferior glenohumeral ligament appears unremarkable. There is no abnormal intraosseous signal in the anterior-inferior osseous glenoid QUADRILATERAL SPACE: No evidence of mass in the region of the axillary nerve and dorsal circumflex humeral vessels. Visualized triceps muscle at this level appears unremarkable. IMPRESSION: 1. Findings are consistent with calcific rotator cuff tendinitis with the largest calcific density measuring 8 x 5 mm and associated with the most anterior aspect of the supraspinatus. On 1 sagittal image there is a subtle suggestion of a possible supraspinatus tendon tear at this level in the tendon immediately adjacent to the calcium. There is also a tiny amount of fluid in the overlying subacromial space. However, this finding is not seen on all 3 planes. There is no tendon retraction and no muscle atrophy. 2. There are also smaller calcium deposits associated with the outer aspect of the infraspinatus tendon. No tear. No muscle atrophy. 3. No evidence of biceps tendon nor labral tear. 4. No obvious degenerative changes in the glenohumeral joint and no joint effusion or loose intra-articular bodies evident. DATA REPOSITORY:
== END 2024-11-13 02:20 ==
PROVIDERS: PCP Family Medicine; Visit Provider Physician Assistant
DX: M75.41 Impingement syndrome of right shoulder (principal); M75.31 Calcific tendinitis of right shoulder
CPT/HCPCS: 73221

== ENCOUNTER 2024-12-09 10:38 | Outpatient (REF) | payer BC, SELFPAY ==
[2024-12-09 16:22] LABS: Cholesterol 270 mg/dL (<200); HDL Cholesterol 55 mg/dL (>or=50)
== END 2024-12-09 10:39 | disposition home or self-care (01) ==
LOC: NCHCN 10:38
PROVIDERS: PCP Family Medicine; Visit Provider Family Medicine
DX: E78.00 Pure hypercholesterolemia, unspecified (principal)
CPT/HCPCS: 80061

== ENCOUNTER → 2024-12-11 02:20 | Outpatient (CLI) | payer BC, SELFPAY ==
--- NOTE | 2024-12-11 | DI.RAD_ITS ---
Exam(s) XR SACROILIAC JOINTS EXAM: XR SACROILIAC JOINTS CLINICAL HISTORY: RT SI JOINT PAIN, M53.3,BILAT HIP PAIN. TECHNIQUE: 2D digital imaging was performed. COMPARISON: CT CT ABDOMEN PELVIS W from 10/30/2020 FINDINGS: 3 views No evidence of sacroiliitis nor ankylosis of the SI joints. However, there is a lucent expansile subcortical bone lesion in the iliac bone on the lateral aspect of the or sacroiliac joint, this of some concern. It was not evident on abdominal CT scan of October 2020. There also nonexpansile lucencies in the medial aspect of the left superior pubic ramus. IMPRESSION: Concerning expansile lucent bone lesion in the inferior aspect of the right sacroiliac joint on its iliac side measuring approximately 1.2 x 1.0 cm. This is a concerning bone lesion and requires appropriate workup for neoplasm DATA REPOSITORY: RADIATION DOSE DELIVERED:
--- NOTE | 2024-12-11 11:40 | DI.RAD_ITS ---
Exam(s) XR HIP PELVIS ADULT BL EXAM: XR HIP PELVIS ADULT BL CLINICAL HISTORY: BILAT HIP PAIN,M25.551. TECHNIQUE: 2D digital imaging was performed. COMPARISON: CT CT ABDOMEN PELVIS W from 03/28/2018 FINDINGS: Five views No evidence of pelvic nor hip fractures and no hip joint space narrowing nor femoral head osteophytes and there are no degenerative subarticular cysts. However, there are symmetrical findings in both hips with soft tissue calcification just lateral to the greater trochanters bilaterally consistent with calcific tendinitis probably related to the gluteus medius tendons. Also consideration for calcific trochanteric bursitis. Bone density is normal. No osseous lesions. IUD noted in the central pelvis. There is a round calcification in the right-side of the pelvis measuring 122 by 1.0 cm. Larger than typical phlebolith and not in typical location for calcified uterine fibroid. This was not evident on pelvic CT scan of March 2018. May be related to the right ovary. IMPRESSION: There are abnormal soft tissue calcifications in both hips just lateral to the bilateral greater trochanters consistent with calcific tendinitis/bursitis Other findings as above. DATA REPOSITORY: RADIATION DOSE DELIVERED:
== END ==
PROVIDERS: PCP Family Medicine; Visit Provider Family Medicine
DX: M53.3 Sacrococcygeal disorders, not elsewhere classified (principal); M25.551 Pain in right hip; M25.552 Pain in left hip
CPT/HCPCS: 73521; 72202

== ENCOUNTER 2024-12-18 16:39 | Outpatient (REF) | payer BC, SELFPAY ==
[2024-12-18 21:12] LABS: ALT 31 U/L (10-49); AST 23 U/L (<34); Albumin 4.5 g/dL (3.4-5.0); Alkaline Phosphatase 44 U/L (46-116); Anion Gap 9.1 mmol/L (3-11); BUN 17 mg/dL (9-23); Bilirubin, Total 0.50 mg/dL (0.2-1.2); CO2 26.9 mmol/L (20.0-31.0); Calcium 9.1 mg/dL (8.3-10.6); Chloride 105 mmol/L (98-107); Glucose 102 mg/dL (74-106); Potassium 4.5 mmol/L (3.5-5.1); Sodium 141 mmol/L (136-145); Total Protein 7.4 g/dL (5.7-8.2)
[2024-12-20 12:58] LABS: Albumin 61.1 % (55.8-66.1); Albumin g/dL 4.6 g/dL (3.6-5.2); Alpha 1 g/dL 0.20 g/dL (0.15-0.40); Alpha 2 g/dL 0.60 g/dL (0.50-1.00); Beta g/dL 1.00 g/dL (0.60-1.20); Gamma g/dL 1.20 g/dL (0.60-1.60); Total Protein 7.6 g/dL (6.3-8.2)
== END 2024-12-18 16:40 | disposition home or self-care (01) ==
LOC: NCHCN 16:39
PROVIDERS: PCP Family Medicine; Visit Provider Family Medicine
DX: M89.8X9 Other specified disorders of bone, unspecified site (principal)
CPT/HCPCS: 80053; 83970; 84100; 84165

== ENCOUNTER → 2025-01-06 03:48 | Outpatient (CLI) | payer BC, SELFPAY ==
--- NOTE | 2025-01-06 | DI.MRI_ITS ---
Exam(s) MR PELVIS WO/W EXAM: MR PELVIS WO/W CLINICAL HISTORY: EXPANSILE RT ILIAC BONE LESIONS ON XRAY 12/11/24 COMPARISON: CR XR HIP PELVIS ADULT BL from 12/11/2024 CR XR SACROILIAC JOINTS from 12/11/2024 TECHNIQUE: Multisequence MRI scan was performed on 1.5 alee unit with both pre and post contrast injected sequences. INTRAVENOUS CONTRAST: 16 mL Dotarem intravenous FINDINGS: OSSEOUS:: There is no abnormal marrow signal in the pelvis, hips, sacrum, sacroiliac joints, and symphysis pubis. there is also no abnormal marrow enhancement. No evidence of sacroiliitis. With respect to the lesions described on the iliac side of the sacroiliac joints on the recent plain films of 12/11/2024, there is no evidence of lytic osseous lesions nor marrow edema on the MRI scan. I note that this lesion was best visualized on the Olivares view of the recent plain film series. Therefore this finding is most probably in exaggerated pre-auricular sulcus/para glenoid sulcus (which can simulated destructive bone lesion on the Olivares view of a plain film series). Also no significant findings on either side of the symphysis pubis. The pubic rami appear unremarkable bilaterally. MUSCULOTENDINOUS STRUCTURES: There is some increased signal lateral to the greater trochanters of both hips, more so on the right side. These findings are consistent with an element of tendinitis-bursitis. This corresponds to the area of soft tissue calcifications as seen on recent plain films. No abnormal marrow signal in the hips. No stress fractures nor avascular necrosis. No hip joint effusions. There is mild increased signal consistent with tendinitis at the right common hamstrings insertion at the level the right ischial tuberosity. There is also some increased signal in the right quadratus femoris muscle between the right ischial tuberosity and lesser trochanter of the right hip. This is sometimes seen with impingement syndrome at this level. Similar finding is not seen on the opposite-left side. INTRAPELVIC STRUCTURES: Uterus: There is a fundal fibroid which measures 3 x 2.5 x 2.6 cm. There is an IUD in the endometrial canal. There is no abnormal thickening of the endometrium and no abnormal fluid in the endometrial canal. Adnexae: No significant masses. No free fluid. Urinary bladder: No significant findings. IMPRESSION: 1. No lytic bone lesions identified on the iliac side of the sacroiliac joints as described on recent plain films. This implies that this finding is in exaggerated pre-auricular sulcus (right greater than left) on the plain films. This groove develops due to bone resorption at the insertion site of the anterior sacroiliac ligament and is usually in response to stress, not necessarily symptomatic, and is significantly more prominent in female patients, particularly parous women. This finding can simulate a destructive bone lesion on plain films, as was the case here. 2. Also no significant osseous findings at the level of the left superior pubic ramus, as mentioned on recent plain films. 3. Increased signal lateral to the greater trochanter of the right hip consistent with element of tendinitis bursitis and corresponding to region of soft tissue calcification seen at this location on recent plain films. A lesser amount of the same is seen on the opposite-left side. 4. Mild tendinitis signal evident at the right common hamstrings tendon insertion upon the right ischial tuberosity. 5. There is in the 3.0 x 2.5 x 2.6 cm fundal fibroid in the uterus. An IUD is noted in the endometrial canal. DATA REPOSITORY:
[2025-01-06] MEDS: Gadoterate meglumine 20 ML SYRINGE IJ (12:26)
[2025-01-06] MEDS: Normal Saline Flush 10 ML SYR IVP (12:26)
== END ==
LOC: DI 03:48
PROVIDERS: PCP Family Medicine; Visit Provider Family Medicine
DX: M89.8X8 Other specified disorders of bone, other site (principal); M65.251 Calcific tendinitis, right thigh
CPT/HCPCS: 72197

== ENCOUNTER → 2025-01-28 00:45 | Outpatient (CLI) | payer BC, SELFPAY ==
--- NOTE | 2025-01-28 | DI.RAD_ITS ---
Exam(s) XR HAND RT COMPLETE EXAM: XR HAND RT COMPLETE CLINICAL HISTORY: METACARPOPHALANGEAL JOINT PAIN OF R HAND, M25.541. TECHNIQUE: 2D digital imaging was performed. COMPARISON: CR XR HAND RT COMPLETE from 06/26/2024 FINDINGS: 3 views No evidence of fracture nor subluxations. No erosions. Bone density normal. No osseous lesions. There is a tiny sub mm calcification off the lateral aspect of the interphalangeal joint of the thumb. No other soft tissue calcifications evident. Metacarpophalangeal joint of the thumb appears unremarkable, as do the MCP joints of the other fingers. There are no degenerative changes in the interphalangeal joints. No obvious degenerative changes in the wrist. IMPRESSION: Metacarpophalangeal joints appear unremarkable. Tiny 1 mm calcific density noted off the lateral aspect of the interphalangeal joint of the thumb. DATA REPOSITORY: RADIATION DOSE DELIVERED:
--- NOTE | 2025-01-28 | DI.RAD_ITS ---
Exam(s) XR ELBOW LT COMPLETE EXAM: XR ELBOW LT COMPLETE CLINICAL HISTORY: L ELBOW PAIN, M25.522. TECHNIQUE: 2D digital imaging was performed. COMPARISON: No exams were available for comparison FINDINGS: 3 views There is no evidence of acute fracture nor of both joint effusion. There is no swelling of the olecranon bursa but there is some calcification adjacent to the posterior aspect of the olecranon fossa at the triceps insertion site. Radial head and neck appear unremarkable as does the capitellum and there are no loose intra-articular bodies in the joint space nor obvious degenerative changes. Epicondyles appear unremarkable. IMPRESSION: There is some soft tissue calcification posteriorly in the elbow at the triceps insertion site on the posterior aspect of the olecranon. Correlation with site of tenderness is recommended. There is minimal if any significant swelling of the olecranon bursa. DATA REPOSITORY: RADIATION DOSE DELIVERED:
== END ==
LOC: DI 00:45
PROVIDERS: PCP Family Medicine; Visit Provider Family Medicine
DX: M25.552 Pain in left hip (principal); M25.541 Pain in joints of right hand
CPT/HCPCS: 73080; 73130

== ENCOUNTER → 2025-01-29 00:11 | Outpatient (CLI) | payer BC, SELFPAY ==
--- NOTE | 2025-01-29 | DI.MRI_ITS ---
Exam(s) MR UPPER JOINT LT WO EXAM: MR UPPER JOINT LT WO CLINICAL HISTORY: M25.532 Pain swelling left wrist,M25.432 Effusion left wrist;s/p carpal. TECHNIQUE: Multiplanar multisequence MRI was performed. COMPARISON: None. FINDINGS: BONES: There is no fracture nor bone contusion. No evidence of avascular necrosis. JOINTS: Mild increased fluid is noted in the radiocarpal joint. The carpal joints are otherwise unremarkable. Scapholunate distance is normal.No evidence of focal para-articular ganglion. TENDONS: Flexors: Unremarkable. No tears nor tenosynovitis. No significant findings in the carpal tunnel. The median nerve in the carpal tunnel appears unremarkable on this noncontrast study. Extensors: There is some signal abnormality within the abductor pollicis longus and extensor pollicis brevis tendons and a minimal amount of surrounding fluid. On the opposite-medial aspect of the wrist there is minimal signal abnormality in the extensor carpi ulnaris tendon adjacent to the ulnar styloid SOFT TISSUES: Unremarkable. LIGAMENTS: Unremarkable. TRIANGULAR FIBROCARTILAGE: Unremarkable. OTHER: IMPRESSION: 1. Some signal abnormality is noted in the abductor pollicis longus and extensor pollicis brevis tendons and minimal surrounding increased signal, probably representing an element of de Quervain tenosynovitis. 2. Very mild signal abnormality on the medial aspect of the wrist in the extensor carpi ulnaris tendon at the level the ulnar styloid. There is no fluid in the tendon sheath at this level. 3. Mild effusion noted in the radiocarpal joint. No evidence of para-articular ganglion cysts. 4. No evidence of fracture or bone contusions and no evidence of avascular necrosis. DATA REPOSITORY:
--- NOTE | 2025-01-29 18:51 | DI.VRAD_ITS ---
PROCEDURE INFORMATION: Exam: MR Left Upper Extremity Joint Without Contrast; Wrist Exam date and time: 01/29/2025 11:36 AM Age: 49 years old Clinical indication: Other: Previous carpal tunnel surgury, tenosynovitos de quervain/ extensor carpi ulnaris. Presistant medial pain TECHNIQUE: Imaging protocol: Magnetic resonance imaging of the left upper extremity without contrast. Exam focused on the wrist. Total images: [id number] COMPARISON: MR UPPER JOINT LT WO 09/18/2024 7:40 AM FINDINGS: Bones/joints: No bone marrow edema. Mild effusions in the radial carpal and intercarpal spaces. Scapholunate ligament: Unremarkable. No tear. Lunotriquetral ligament: Unremarkable. No tear. Triangular fibrocartilage complex: Unremarkable. No tear. Flexor compartment tendons: Unremarkable. No tear. Extensor compartment tendons: Increased signal and fluid within the tendons/tendon sheaths abductor pollicis longus and extensor pollicis brevis tendons. Soft tissues: Carpal tunnel appears unremarkable. IMPRESSION: Consistent with the clinical history of de Quervain tendinitis/tenosynovitis. Dictated and Authenticated by: Dalton Wong MD. Orderin Leighton Cervantes MD
== END ==
LOC: DI 00:12
PROVIDERS: PCP Family Medicine; Visit Provider Family Medicine
DX: M25.532 Pain in left wrist (principal); M25.432 Effusion, left wrist; M25.522 Pain in left elbow; M25.541 Pain in joints of right hand
CPT/HCPCS: 73221